=== PATIENT | female | born 2000 | race Caucasian/White ===

== ENCOUNTER 2020-05-18 11:36 | Emergency (ER) | payer OTHER ==
[~2020-05-18] VITALS: Ht 162.6 cm; Wt 59.1 kg
--- OUTSIDE RECORDS SUMMARY | 2020-05-18 11:40 | CCD | Continuity of Care Document ---
Author Author Valentina [facility] Organization Unknown Address [address] [place] [id number] Phone [phone] Care Team Providers Care Customer Servicer Name Role Phone [facility] AUTM [phone] Israel [facility] AUTM [phone] RODRIGUE [facility] AUTM [phone] Israel [facility] PCP [phone] Social History Type Date Description Comments Sex Unknown Allergies, Adverse Reactions, Alerts Description No Known Drug Allergies Medications Active Medications SIG Qnty Indications Ordering Provide r Date Metoprolol Succinate ER 25mg Tablets ER 24HR Take One Tablet By Mouth Daily AT Bedtime 90tabs [facility] 05/06/[address] Take One Tablet By Mouth Daily 30tabs [facility] 021 History Medications No Active Medications Unknown - 05/06/2020 Vital Signs Date Vital Result Comment 05/06/2020 11:23am Height 64 inches 5'4" Weight 137.25 lb BMI (Body Mass Index) 23.6 kg/m2 Body Temperature 97.2 F BP Systolic 124 mmHg BP Diastolic 78 mmHg Heart Rate 82 /min O2 % BldC Oximetry 99 % 04/26/2020 2:29pm Height 64 inches 5'4" Weight 133.50 lb BMI (Body Mass Index) 22.9 kg/m2 Body Temperature 97.5 F BP Systolic 123 mmHg BP Diastolic 82 mmHg Heart Rate 88 /min O2 % BldC Oximetry 99 % Procedures Date Code Description Status 04/28/2020 45263 24 Hour Holter Monitoring Comple bijan 04/26/2020 21006 Echocardiogram, Complete Complet ed 04/26/2020 30082 Multistage Exercise Stress Test Completed 04/26/2020 20253 EKG Completed Encounters Type Date Location Provider Dx Diagnosis Office Visit 05/06/2020 11:30a [facility] Rodrigue Schreer [facility] I49.49 Other premature depolarization Office Visit 04/26/2020 2:15p [facility] Rodrigue [facility] R07.9 Chest pain, unspecified R53.83 Other fatigue I34.0 Nonrheumatic mitral (valve) insufficiency I25.9 Chronic ischemic heart disea se, unspecified I49.49 Other premature depolarizati on Assessments Date Code Description Provider 05/06/2020 I49.49 Other premature depolarization Hema [facility]r [facility] 04/28/2020 R00.2 Palpitations Damian Lowery[facility] 04/26/2020 R07.9 Chest pain, kishaified Rodrigue As hrafNick[facility] 04/26/2020 R53.83 Other fatigue Damian Lowery[facility] 04/26/2020 I34.0 Nonrheumatic mitral (valve) insu fficiency [facility] 04/26/2020 I25.9 Chronic ischemic heart disease, unspecified [facility] 04/26/2020 I49.49 Other premature depolarization Hema [facility]r [facility] Plan of Treatment Future Appointment(s):* 06/06/2020 2:30 pm - Rodrigue [facility] at [facility] Referrals Refer to Reason for Referral Status Appt Date Rodrigue Scherer M.D. Created [address] [place] [address] [phone]
--- OUTSIDE RECORDS SUMMARY | 2020-05-18 11:41 | CCD ---
Author Author [facility] Organization [facility] Address Unknown Phone Unavailable Care Team Providers Care Locks Tender Name Role Phone PHILLIP SCHERER MD Unavailable Unavailable IGNACIASELINQBOVU ANDERSON MD Unavailable Unavailable IGNACIA MAQBOOL JUSTIN DE LA ROSA Unavailable Unavailable IGNACIA MAQBOVU ANDERSON MD Unavailable Unavailable IGNACIASELINQBOVU ANDERSON MD Unavailable Unavailable IGNACIASELINQBOVU ANDERSON MD Unavailable Unavailable IGNACIA MAQBOVU ANDERSON MD Unavailable Unavailable IGNACIA MAQBOVU ANDERSON MD Unavailable Unavailable IGNACIASELINQBOVU ANDERSON MD Unavailable Unavailable IGNACIAZAKIYABOVU ANDERSON MD Unavailable Unavailable IGNACIASELINQBOVU ANDERSON MD Unavailable Unavailable IGNACIASELINQBOVU ANDERSON MD Unavailable Unavailable IGNACIASELINQBOVU ANDERSON MD Unavailable Unavailable IGNACIASELINQBOVU ANDERSON MD Unavailable Unavailable IGNACIASELINQBOVU ANDERSON MD Unavailable Unavailable IGNACIA MAQBOVU ANDERSON MD Unavailable Unavailable IGNACIA MAQBOOL JUSTIN DE LA ROSA Unavailable Unavailable IGNACIA MAQBOUV ANDERSON MD Unavailable Unavailable IGNACIASELINQBOVU ANDERSON MD Unavailable Unavailable IGNACIASELINQBOVU ANDERSON MD Unavailable Unavailable IGNACIA MAQBOOL JUSTIN DE LA ROSA Unavailable Unavailable IGNACIA MAQBOVU ANDERSON MD Unavailable Unavailable IGNACIA MAQBOVU ANDERSON MD Unavailable Unavailable IGNACIA MAQBOVU ANDERSON MD Unavailable Unavailable IGNACIA MAQBOOL JUSTIN MD Unavailable Unavailable IGNACIA, MAQBOOL JUSTIN MD Unavailable Unavailable IGNACIA, MAQBOOL JUSTIN MD Unavailable Unavailable IGNACIA, MAQBOOL JUSTIN MD Unavailable Unavailable IGNACIA, MAQBOOL JUSTIN MD Unavailable Unavailable IGNACIA, MAQBOOL JUSTIN MD Unavailable Unavailable IGNACIA, MAQBOOL JUSTIN MD Unavailable Unavailable IGNACIA, MAQBOOL JUSTIN MD Unavailable Unavailable IGNACIA, MAQBOOL JUSTIN MD Unavailable Unavailable IGNACIA, MAQBOOL JUSTIN MD Unavailable Unavailable IGNACIA, MAQBOOL JUSTIN MD Unavailable Unavailable INGACIA, MAQBOOL JUSTIN MD Unavailable Unavailable IGNACIA, MAQBOOL JUSTIN MD Unavailable Unavailable IGNACIA, MAQBOOL JUSTIN MD Unavailable Unavailable IGNACIA, MAQBOOL JUSTIN MD Unavailable Unavailable IGNACIA, MAQBOOL JUSTIN MD Unavailable Unavailable IGNACIA, MAQBOOL JUSTIN MD Unavailable Unavailable IGNACIA, MAQBOOL JUSTIN MD Unavailable Unavailable IGNACIA, MAQBOOL JUSTIN MD Unavailable Unavailable IGNACIA, MAQBOOL JUSTIN MD Unavailable Unavailable IGNACIA, MAQBOOL JUSTIN MD Unavailable Unavailable IGNACIA, MAQBOOL JUSTIN MD Unavailable Unavailable IGNACIA, MAQBOOL JUSTIN MD Unavailable Unavailable IGNACIA, MAQBOOL JUSTIN MD Unavailable Unavailable IGNACIA, MAQBOOL JUSTIN MD Unavailable Unavailable IGNACIA, MAQBOOL JUSTIN MD Unavailable Unavailable IGNACIA, MAQBOOL JUSTIN MD Unavailable Unavailable IGNACIA, MAQBOOL JUSTIN MD Unavailable Unavailable IGNACIA, MAQBOOL JUSTIN MD Unavailable Unavailable IGNACIA, MAQBOOL JUSTIN MD Unavailable Unavailable IGNACIA, MAQBOOL JUSTIN MD Unavailable Unavailable IGNACIA, MAQBOOL JUSTIN MD Unavailable Unavailable IGNACIA, MAQBOOL JUSTIN MD Unavailable Unavailable IGNACIA, MAQBOOL JUSTIN MD Unavailable Unavailable IGNACIA, MAQBOOL JUSTIN MD Unavailable Unavailable IGNACIA, MAQBOOL JUSTIN MD Unavailable Unavailable IGNACIA, MAQBOOL JUSTIN MD Unavailable Unavailable IGNACIA, MAQBOOL JUSTIN MD Unavailable Unavailable IGNACIA, MAQBOOL JUSTIN MD Unavailable Unavailable IGNACIA, MAQBOOL JUSTIN MD Unavailable Unavailable IGNACIA, MAQBOOL JUSTIN MD Unavailable Unavailable IGNACIA, MAQBOOL JUSTIN MD Unavailable Unavailable IGNACIA, MAQBOOL JUSTIN MD Unavailable Unavailable IGNACIA, MAQBOOL JUSTIN MD Unavailable Unavailable IGNACIA, MAQBOOL JUSTIN MD Unavailable Unavailable IGNACIA, MAQBOOL JUSTIN MD Unavailable Unavailable IGNACIA, MAQBOOL JUSTIN MD Unavailable Unavailable IGNACIA, MAQBOOL JUSTIN MD Unavailable Unavailable IGNACIA, MAQBOOL JUSTIN MD Unavailable Unavailable IGNACIA, MAQBOOL JUSTIN MD Unavailable Unavailable Jen, J Gordon PA-C Unavailable Unavailable Jen, J Gordon PA-C Unavailable Unavailable Jen, J Gordon PA-C Unavailable Unavailable Jen, J Gordon PA-C Unavailable Unavailable Jen, J Gordon PA-C Unavailable Unavailable Jen, J Gordon PA-C Unavailable Unavailable Jen, J Gordon PA-C Unavailable Unavailable Jen, J Gordon PA-C Unavailable Unavailable Jen, J Gordon PA-C Unavailable Unavailable Jen, Karla Gordon PA-C Unavailable Unavailable Jen, J Gordon PA-C Unavailable Unavailable Re-disclosure Warning The records that you are about to access may contain information from federally-assisted alcohol or drug abuse programs. If such information is present, then the following federally mandated warning applies: This information has been disclosed to you from records protected by federal confidentiality rules (42 CFR part 2). The federal rules prohibit you from making any further disclosure of this information unless further disclosure is expressly permitted by the written consent of the person to whom it pertains or as otherwise permitted by 42 CFR part 2. A general authorization for the release of medical or other information is NOT sufficient for this purpose. The Federal rules restrict any use of the information to criminally investigate or prosecute any alcohol or drug abuse patient.The records that you are about to access may contain highly sensitive health information, the redisclosure of which is protected by Article 27-F of the [facility] Public Health law. If you continue you may have access to information: Regarding HIV / AIDS; Provided by facilities licensed or operated by the [facility] Office of Mental Health; or Provided by the [facility] Office for People With Developmental Disabilities. If such information is present, then the following [facility] mandated warning applies: This information has been disclosed to you from confidential records which are protected by state law. State law prohibits you from making any further disclosure of this information without the specific written consent of the person to whom it pertains, or as otherwise permitted by law. Any unauthorized further disclosure in violation of state law may result in a fine or mcfp sentence or both. A general authorization for the release of medical or other information is NOT sufficient authorization for further disc losure. Encounters Encounter Providers Location Date Indications Data Source(s ) Office Visit Attender: JUSTIN SCHERER MD Medical Building 05/06 10:30:00 AM EST [facility] (Justin Scherer MD) Office Visit Attender: JUSTIN SCHERER MD Medical [facility] 04/26 01:15:00 PM EST [facility] (Justin Scherer MD) Emergency Attender: Gordon Li PA-C 10:33:00 AM EST - 03/15/2020 01:04:00 PM [facility] Patient discharged. Medications Medication Brand Name Start Date Product Form Dose Route Admi nistrative Instructions Pharmacy Instructions Status Indications Reaction Description Data Source(s) Magnesium Chloride 535 MG Delayed Release Oral Tablet [Mag 6 4] Mag64 05/06/2020 12:00:00 AM EST active [facility] (Justin Scherer MD) 24 HR metoprolol succinate 25 MG Extended Release Oral Tablet Metoprolol Succinate ER 05/06/2020 12:00:00 AM EST active [facility] (Justin Scherer MD) No Active Medications 04/26/2020 12:00:00 AM EST completed [facility] (Justin Scherer MD) Insurance Providers Payer name Policy type / Coverage type Policy ID Covered democrat ID Covered democrat's relationship to robles Policy Robles Plan Information [employer] [id number] SP [id number] [employer] [id number] SP [id number] [employer] [facility] [employer] - O/P [id number] 18 [id number] Problems, Conditions, and Diagnoses Code Display Name Description Problem Type Effective Dates Data Source(s) R55 Syncope and collapse Syncope and collapse Diagnosis 03/15/2020 10:33:00 AM [facility] I493 Ventricular premature depolarization Ventricular premature depolarization Diagnosis 03/15/2020 10:33:00 AM [facility] R0789 Other chest pain Other chest pain Diagnosis 03/15/2020 10 :33:00 AM [facility] Surgeries/Procedures Procedure Description Date Indications Data Source(s) XTRNL ECG < 48 HR RECORD SCAN STOR W/PHY R&I 12:00:00 AM EST [facility] (Justin Scherer MD) ECG ROUTINE ECG W/LEAST 12 LDS W/I&R 04/26/2020 12:00: 00 AM EST [facility] (Justin Scherer MD) CV STRS TST XERS&/OR RX CONT ECG PHYS SI&R 04/26/2020 12:00:00 AM EST [facility] (Justin Scherer MD) ECHO TTHRC R-T 2D W/WOM-MODE COMPL SPEC&COLR DOP 04/26 12:00:00 AM EST [facility] (Justin Scherer MD) Results ID Date Data Source [id number] 03/16/2020 11:55:00 PM [facility] [address] [place] [address] RESPIRATORY CARE REPORT ==== ---------NAME------- NUMBER SEX AGE ADMIT DISC. XRAY# [facility] DAMEON D [id number] F 19 03/15/20 03/15/202099807923 SB4 E/R DATE OF : 2000 M/R# [id number] #: [id number] VT-01 LOCATION: EMERGENCY DEPT EKG 89211 COMPLE TE:03/15/20 14:18 [facility] [address] PHYSICIAN: JEN LAZARO Name Value Range Interpretation Code Description Data Bree rce(s) Supporting Document(s) ID Date Data Source [id number] 03/16/2020 11:32:00 AM EST [facility] [address] [place] [address] PHONE: [phone] FAX: [phone] Name .................. : GERARDO Lazo Acct Number.................. : [id number] [facility]... : [id number] Stay type ............. : E/R Discharge Date......... ... : 03/15/20 Admit Date .... ..... : 03/15/20 Admit Phys .................... : JEN IVETH Date of ....... : 2000 Family Phys ................... : UNKNOWN Phone .................. : [phone] Age ................................ : 19 Film# .................. .:[id number] Sex ................................. : F Unsigned transcriptions are preliminary reports and do not represent a medical or legal document CT CTA CHEST NON-CORONARY W C 16977 COMPLETE:03/15/20 11:14 218 Reason(s): light headed dizziness, chest pain, elevated d dimer, ? PE CTA CHEST WITH CONTRAST, 03/15/20: CLINICAL INDICATION: Chest pain and dizziness. Elevated D-dimer. Comparison: None. FINDINGS: Pulmonary arteries: Well opacified, no acute pulmonary embolism. Normal caliber. No right heart string. Lower neck: Unremarkable. Lungs: Clear. No suspicious nodule. No pleural effusion or pneumothorax. Patent central airways. Mediastinum: Normal heart size. Normal caliber thoracic aorta. No significant atherosclerotic disease. Lymph nodes: No hilar, mediastinal, or axillary adenopathy. Upper abdomen: No acute findings. Bones: No acute or suspicious osseous abnormality. IMPRESSION: No pulmonary embolism or other acute abnormality in the chest. While performing the above CT examination, radiation dose reduction was accomplished utilizing automated exposure control, adjusting of the mA and kV based on the patient's body size and/or the use of imperative reconstructive techniques. Page 1 of 2 [place] [address] PHONE: [phone] FAX: [phone] Name .................. : GERARDO Lazo Acct Number.................. : [id number] ROOM. ................. : VT-01 MR Number ................... : [id number] Stay type ............. : E/R Discharge Date......... ... : 03/15/20 Admit Date ......... : 03/15/20 Admit Phys .................... : [facility] Date of ....... : 2000 Family Phys ................... : UNKNOWN Phone .................. : [phone] Age ................................ : 19 Film# .................. .:[id number] Sex ................................. : F Unsigned transcriptions are preliminary reports and do not represent a medical or legal document CT CTA CHEST NON- CORONARY W C 03920 COMPLETE:03/15/20 11:14 218 Reason(s): light headed dizziness, chest pain, elevated d dimer, ? PE CT dose 327.2 mGycm. Contrast agent in mL: 75 mL Isovue 370 Method of administration: Intravenous Electronically Reviewed and Signed By Alberto Richardson MD , 03/16/20 11:32, APM Transcribe Initials: SSR, Transcribe Date: 03/15/20 14:36, Dictation Date: Copy for: JEN Acosta via fax Copy for: EMERGENCY DEPT via modem Copy for: 710 MED REC DISCHARGED Page 2 of 2 Name Value Range Interpretation Code Description Data Bree rce(s) Supporting Document(s) ID Date Data Source [id number] 03/16/2020 11:31:00 [place] [address] PHONE: [phone] FAX: [phone] Name .................. : GERARDO Lazo Acct Number.................. : [id number] ROOM. ................. : VT-01 MR Number ................... : [id number] Stay type ............. : E/R Discharge Date......... ... : 03/15/20 Admit Date ....... .. : 03/15/20 Admit Phys .................... : JEN IVETH Date of ....... : 2000 Family Phys ................... : UNKNOWN Phone .................. : [phone] Age ................................ : 19 Film# .................. .:[id number] Sex ................................. : F Unsigned transcriptions are preliminary reports and do not represent a medical or legal document DOPPLER UNILATERAL VENOUS 25963 COMPLETE:03/15/20 12:39 MCM 219 Reason(s): Cold Extremity VENOUS SONOGRAM OF THE LEFT LOWER EXTREMITY, 03/15/20: INDICATION: Cold extremity. FINDINGS: There is normal compressibility of the deep venous system from the external iliac through the popliteal vein with normal augmentation identified. IMPRESSION: No evidence for any underlying DVT. Examination dictated by TITA Garrison. Examination was reviewed with Alberto Richardson MD, radiologist at the time of this dictation. Electronically Reviewed and Signed By Alberto Richardson MD , 03/16/20 11:31, APM Transcribe Initials: SSR, Transcribe Date: 03/15/20 14:02, Dictation Date: Copy for: JEN Acosta via fax Copy for: EMERGENCY DEPT via [facility] Copy for: 710 MED REC DISCHARGED Page 1 of 1 Name Value Range Interpretation Code Description Data Bree rce(s) Supporting Document(s) ID Date Data Source [id number] 03/15/2020 10:33:00 AM EST [facility] 1 OrderSheet [facility] Emergency Department [address] [place] [address] Phone #: ext- [phone] 03/15/2020 10:22 [id number] Sex[facility] F : 2000 Age: 19yWEIGHT:58.9 kg (S) HEIGHT:64 inches (S) BMI:22.3ALLERGIES: No Known Drug AllergyCHIEF COMPLAINT: chest painDIAGNOSIS: Electrocardiogram abnormal, Near syncopeLAB ORDERSOrder Description Priority Entered Acknowledged InitialedBeta-HCG, Qual STAT 10:37 03/15/2020 10:43 Paloma,Urine Gordon RIVERS; Loulou R.EvelynCBC w Diff STAT 10:37 03/15/2020 10:43 Gordon Dow; Loulou HarveyCMP STAT 10:37 03/15/2020 10:43 Gordon Bertrand; Loulou HarveyD-Dimer STAT 10:37 03/15/2020 10:43 Gordon Dow; Loulou HarveyLactic Acid STAT 10:37 03/15/2020 10:43 Gordon Dow; Loulou Beard.EvelynPT/PTT STAT 10:37 03/15/2020 10:43 Gordon Dow; Loulou HarveyTroponin-T STAT 10:37 03/15/2020 10:43 Gordon Dow; Loulou Beard.EvelynTSH STAT 10:37 03/15/2020 10:43 Gordon Dow; Loulou R.EvelynUrinalysis (Clean STAT 10:37 03/15/2020 Ack'd: 10:43 10:55 [facility]) Gordon RIVERS; Loulou Dow drill press tender, Good CRISTOBAL R.NJuice Idub2Tezbmtn, Urine STAT 12:55 03/15/2020 12:55 Paloma,(Urine, Clean Gordon RIVERS; Loulou R.NJuiceCatch)DIAGNOSTIC STUDY ORDERSOrder Description Priority Entered Acknowledged InitialedChest Portable 1 STAT 10:37 03/15/2020 Ack'd: 10:43 Loulou Dow R.N.View Gordon RIVERS; Cancelled: Other 11:14 Gordon Li(Oxygen?(No)) TITA Reason for Study: Chest PainCT CTA CHEST STAT 11:14 03/15/2020 Ack'd: 11:17 11:44 [place], 2 OrderSheet [facility] Emergency Department [address] [place] [address] Phone #: ext- [phone] 03/15/2020 10:22 Patient: DAMEON CARRILLO Se x: F : 2000 Age: 19y(NONCOR) W CON Gordon RIVERS; Loulou Dow R.N.INC PP R.NJuice(Oxygen?(No))(IV?(Yes)) Reason for Study: light headed dizziness, chest pain, elevated d dimer, ? PEUS Lower Ext STAT 11:14 03/15/2020 Ack'd: 11:17 12:21 BurnhamVenous Left Gordon RIVERS; Loulou Dow drill press tender, Good ER(Oxygen?(No)) R.N. Tech1 Reason for Study: Cold Extremity, Lower Ext Pain/ImmobilityMEDICATION/IV/DRIP/FLUID ORDERSOrder Description Priority Entered Acknowledged InitialedNS IV : Bolus 500 11:14 03/15/2020 Ack'd: 11:17 12:06 Paloma,mL, then 100 mL/hr Gordon RIVERS; Loulou Dow R.N.(NOW x1) R.N.GENERAL ORDERSOrder Description Priority Entered Acknowledged InitialedCardiac Monitor 10:37 03/15/2020 10:40 Margo(continuous) Gordon RIVERS; drill press tender, Good ER Pdev9Azsgf Pressure 10:37 03/15/2020 10:40 MargoMonitor Gordon RIVERS; drill press tender, Good ER Sobl5Atwqicjtg 10:37 03/15/2020 10:59 Gordon Dow R.N.EKG 10:37 03/15/2020 10:40 Margo RIVERS; drill press tender, Good ER Rqtq4Jdokk Oximetry 10:37 03/15/2020 10:43 Ondina Dow; Loulou HarveyObtain Old EKG 10:37 03/15/2020 10:43 Gordon Dow; Loulou HarveySaline Lock 10:37 03/15/2020 10:43 Gordon Dow; Loulou HarveyVitals 10:37 03/15/2020 10:43 Gordon Dow; Loulou HarveyWarm blanke t 10:37 03/15/2020 10:43 Gordon Dow; Loulou Harvey[Electronically signed by Loulou Dow R.N. (13:14 03/15/2020)] 3 OrderSheet [facility] Emergency Department [address] [place] [address] Phone #: ext- [phone] 03/15/2020 10:22 Patient: DAMEON CARRILLO Sex: F : 2000 Age: 19y[Electronically signed by Gordon Li (15:49 03/15)][Electronically locked by Loulou Dow R.N. (13:14 03/15/2020)] Name Value Range Interpretation Code Description Data Bree rce(s) Supporting Document(s) ID Date Data Source [id number] 03/15/2020 10:33:00 AM EST [facility] 1 Medication Reconciliation Report [facility] Emergency Department [address] [place] [address] Phone #: ext- [phone] 03/15/2020 10:22 Patient: DAMEON CARRILLO Sex: F : 2000 Age: 19yWeight: 58.9 kgHeight/Length: 64 in.BMI: 22.3ALLERGIES: No Known Drug AllergyThe patient's Home Medications are listed below:NONE.The source(s) of the original Home Medication information:Not obtained.The following Medications were given to the patient in the Emergency Department:NS [IV] IV Fluids bolus 500 mL wide open, then 100 mL/hr, administered: 12:06 03/15/2020The following Medications were prescribed to the patient:None. Name Value Range Interpretation Code Description Data Bree rce(s) Supporting Document(s) ID Date Data Source [id number] 03/15/2020 10:33:00 AM [place] [address] Medication Administration Record [facility] Emergency Department [address] [place] [address] Phone #: [phone]- [phone] 03/15/2020 10:22 Patient: DAMEON CARRILLO Sex: F : 2000 Age: 19yWeight: 58.9 kgHeight/Length: 64 inBMI: 22.3ALLERGIES: No Known Drug Allergy Date/Time Medication Administered Medication OrderedStart NS [IV] NS IV : Bolus 500 mL, then 00555:06 03/15/2020 Dose: IV Fluids mL/hr (NOW x1)Loulou Dow, RJuiceNJuice Rate: 100 mL/hr---- Bolus: 500 mL wide openStop Dispensed: 1000 mL bag12:58 03/15/2020 Site: #1 left Loulou Bridges RJuiceNJuice Name Value Range Interpretation Code Description Data Bree rce(s) Supporting Document(s) ID Date Data Source [id number] 03/15/2020 10:33:00 AM [facility] 1 General Instructions [facility] Emergency Department [address] [place] [address] Phone #: ext- [phone] 03/15/2020 10:22 Patient: DAMEON CARRILLO Sex: F : 2000 Age: 19yNear syncopeAbnormal EKG: premature ventricular contractions.INSTRUCTIONSNo strenuous activity (until evaluated by cardiology). Rest at home for one days.Avoid stimulants (such as cigarettes, coffee, cold medicines, sinus medicines, street drugs) (untilevaluation by data engineer). Do not smoke. No alcohol.Warnings: Further evaluation is necessary in order to conduct further tests. It is very important to follow upwith a healthcare provider.GENERAL WARNINGS: Return or contact your physician immediately if your condition worsens orchanges unexpectedly, if not improving as expected, or if other problems arise. SPECIFICALLY, return ifyou develop chest pain, neck pain, jaw pain, shoulder pain, arm pain, back pain, difficulty breathing, afluttering sensation in your chest, lightheadedness, fainting, extreme fatigue or sudden sweating.Your Current Medications: .No home medication.Understanding of the discharge instructions verbalized by patient. Expected course of illness, dischargeinstructions, activity level, follow-up appointment and risks and benefits of treatment reviewed with patientand understanding verbalized. Agrees to plan of care.Follow-up with: [facility], , , [address], , [place], [address] Follow up in one day even if well. Call for the next available appointment. Reason for referral: evaluationand recommend cardiology referral for further evaluation of PVC's on EKG and symptoms oflightheadedness. Summary of care provided to patient via paper. ADDITIONAL INFORMATIONNear-Fainting with Uncertain CauseFainting (syncope) is a temporary l oss of consciousness (passing out). It happens when blood flow tothe brain is reduced. Near-fainting (near-syncope) is like fainting, but you don't fully pass out. Instead,you feel like you are going to pass out, but don't actually lose consciousness. 2 General Instructions [facility] Emergency Department [address] [place] [id number] Phone #: ext- [phone] 03/15/2020 10:22 Patient: DAMEON CARRILLO Sex: F : 2000 Age: 19ySigns and symptomsThese are symptoms of near-fainting or symptoms that can be associated with near-fainting: Feeling lightheaded or like you are going to faint Weak pulse Nausea Sweating Blurred vision or feeling like your vision is fading Palpitations Chest pain Trouble breathing Feeling cool and clammyCausesFainting typically happens when your blood pressure suddenly drops, and not enough blood flows toyour brain.Common minor causes include: Sudden emotional stress such as fear, pain, panic, or the sight of blood Straining or overexertion, such as straining while using the toilet, vomiting, coughing, or sneezing Standing up too quickly, or standing up for too long a timeMore serious causes include: Very slow, fast, or irregular heart rate (arrhythmia) Dehydration Significant blood loss Medicines, or a recent change in medicines. Medicines that can cause fainting include blood pressure or heart medicines. Heart attack Heart valve problems 3 General Instructions [facility] Emergency Department [address] [place] [address] Phone #: ext- [phone] 03/15/2020 10:22 Patient: DAMEON CARRILLO Sex: F : 2000 Age: 19yRemember, even minor causes can become serious if you fall and injure yourself, or are driving. Youmay need more tests. It's very important that you follow up with your doctor as advised.Home careThese guidelines will help you care for yourself at home: Rest today. Resume your normal activities as soon as you are feeling back to normal. If you become lightheaded or dizzy, lie down right away or sit with your head between your knees. Drink plenty of fluids and don't skip meals.Because the exact cause of your near fainting spell is not known, another spell could occur withoutwarning. To stay safe, don't drive a car or use dangerous equipment. Don't take a bath alone. Don'tswim alone. You can resume these activities when your healthcare provider says that you are nolonger in danger of having a near-fainting spell.Follow-up careFollow up with your healthcare provider, or as advised.Call 911Call 911 or seek [facility] care if any of the following occur: Another near-fainting or full fainting spell occurs, and it's not explained by the common causes listed above Chest, arm, neck, jaw, back or abdominal pain Shortness of breath Weakness, tingling, or numbness in one side of the face, or in one arm or leg Slurred speech, confusion, trouble walking or seeing SeizureWhen to seek medical adviceCall your healthcare provider for advice if any of these occur: Changes in your medicines You start to have near fainting on a more frequent basis 4 General Instructions [facility] Emergency Department [address] [place] [address] Phone #: ext- [phone] 03/15/2020 10:22 Patient: DAMEON CARRILLO Sex: F : 2000 Age: 19y [id number] [employer]. [address] [place] [address]. All rights reserved. This information is not intended as asubstitute for professional medical care. Always follow your healthcare professional's instructions. You have been given the following additional information: Near-Fainting, Uncertain Cause No strenuous activity (until evaluated by cardiology). Rest at home for one days.(Electronically signed by TITA Pfeiffer 03/15/2020 15:49) Name Value Range Interpretation Code Description Data Bree rce(s) Supporting Document(s) ID Date Data Source [id number] 03/15/2020 10:33:00 AM EST [facility] 1 Clinical Report - Nurses [facility] Emergency Department [address] [place] [address] Phone #: ext- [phone] 03/15/2020 10:22 Patient: DAMEON CARRILLO Sex: F : 2000 Age: 19yTRIAGEArrived by private vehicle. Historian: patient.Triage time: 10:24 03/15/2020. Acuity: LEVEL 3.Chief Complaint: CHEST PAIN.10:24 03/15/20. Alert. No acute distress.This started last night. Onset. (2300). ( "Was lying in bed, feeling anxious began having chest pain"Mid-sternal, intermittent, dizzy when standing, walking). The patient has had transient dizziness whenstanding described as light-headedness.SEPSIS SCREEN: SIRS SCREEN NEGATIVE. SEPSIS SCREEN NEGATIVE. No suspected or confirmedsigns of infection present. --10:30 03/15/20 Adore Espinal RN10:24 03/15/20. BP: 137/94. MAP: 108. HR: 78. RR: 15. O2 saturation: 98%. Temp: 96.8 F. Pain levelnow: 2/10. Rodri cribes the quality as sharp. It has been intermittent. Pain level at maximum: 6/10. Noradiation noted. No provoking / relieving factors. --10:30 03/15/20 Adore Espinal RN.Weight: 58.9 kg stated. Height/Length: 64 inches Per Patient. BMI: 22.3. --10:03/15/20 LEONID Deshpande.MedicationsNone. --10:28 03/15/20 Adore Espinal RN.AllergiesNo Known Drug Allergy. --10:28 03/15/20 Adore Espinal RN.PROBLEMS:no known problems.ADDITIONAL SURGERIES:Appendectomy [05/2019]. --10:28 03/15/20 Adore Espinal RN.Ttjjldt11:24 03/15/20.PAST MEDICAL HX: Immunizations: up-to-date. Last normal menstrual period was 1 week ago. Deniescurrent .SOCIAL HX: Never smoker. Occasional alcohol use. No drug use. The patient was offered HIV testingbut declined and hepatitis C testing but declined. The patient has not traveled outside the [place] 2 Clinical Report - Nurses [facility] Emergency Department [address] [place] [address] Phone #: [phone] czd- [phone] 03/15/2020 10:22 Patient: DAMEON CARRILLO Sex: F : 2000 Age: 19y Infectious disease exposure: No infectious disease exposure. (Negative COVID-19 screen). Patient is not a known carrier of tuberculosis, hepatitis, HIV, MRSA or VRE. Patient is not a known carrier of CRE. SELF HARM ASSESSMENT: Self harm assessment was performed. The patient answered "no" to the question(s) "Do you have thoughts of harming or killing yourself?" and "Have you recently had thoughts about harming or killing others?". ABUSE ASSESSMENT: Abuse assessment. The patient had positive responses to the question(s) "Do you feel safe in your home?" (yes). Abuse denied. No report of abuse. NUTRITIONAL RISK ASSESSMENT: The nutritional risk assessment revealed no deficiencies. FUNCTIONAL ASSESSMENT: Functional assessment: no impairments noted. LEARNING NEEDS ASSESSMENT: The learning needs assessment revealed no barriers. FALL RISK ASSESSMENT: Fall risk assessment completed. No risk factors identified. SKIN INTEGRITY ASSESSMENT: Skin integrity risk assessment completed. No skin integrit y risk identified. --10:30 03/15/20 Adore Espinal RN. Interventions 10:24 03/15/20. To treatment room. Ambulatory by hospital staff. to room 2. --10:03/15/20 Adore Espinal RN.PHYSICAL ASSESSMENTAmbulatory to room.GENERAL / NEURO / PSYCH: Alert. Oriented X 4. Appears in no acute distress.HEENT: Mucous membranes are pink.RESPIRATORY: Respirations not labored. Sternal tenderness.CVS: Cardiac rhythm: unifocal PVCs (frequent every 2-4 beats). Pulses within normal limits. Capillaryrefill less than 2 seconds.GI / : The patient has had nausea. Abdomen soft. Abdominal tenderness in the upper abdom en.EXTREMITIES: No lower extremity edema.SKIN: Skin is warm and dry. Normal skin turgor. Skin is non-tender. --10:43 03/15/20 Loulou Dow R.N.NURSING PROGRESS NOTES10:24 03/15/20. police detention attendant, NIBP monitor and pulse oximeter placed on patient; pharmacist apprentice-Lead II; monitor alarms on; monitor strip scanned to medical record. Patient gowned. Head of bedelevated. Two patient identifiers checked. Call light placed in reach. Side rails up x 2. Bed placed inlowest position. Brakes of bed on. Patient ready for evaluation- PA notified. --10:03/15/20 LEONID Deshpande 3 Clinical Report - Nurses [facility] Emergency Department [address] [place] [address] Phone #: ext- [phone] 03/15/2020 10:22 Patient: DAMEON CARRILLO Sex: F : 2000 Age: 19y10:25 03/15/20. EKG time: (10:25 03/15/2020). EKG was ordered, performed by a tech and shown ghislaine RIVERS. --10:31 03/15/20 Adore Espinal RN10:34 03/15/2020 Site #1 started via IV in the left antecubital space with an 20g angiocath; one attempt.Blood drawn: rainbow set and blood bank tube. Labeled in the presence of the patient and sent to the lab.Saline lock flushed with 10 mL saline. --10:44 03/15/20 Loulou Dow R.N.Finger stick glucose: 92; performed by nurse; result shown to the ED physician. --10:59 03/15/20 Loulou Dow R.N.Patient ID band checked for patient name and birthdate: patient confirmed. Instructions provided to collectclean catch urine and patient verbalized understanding. Clean catch u rine collected; sample sent to lab forurinalysis. Specimen labeled in the presence of the patient. --10:59 03/15/20 Loulou Dow R.N.Patient transported to [place] by wheelchair with mask and dictaphone technician. --11:44 03/15/20 Apple Jackson R.N.Patient returned from [place] by wheelchair with dictaphone technician. --11:55 03/15/20 [facility] [place], [facility] Jdvp388:06 03/15/2020 Started bag #1 1000 mL IV Fluids NS; bolus of 500 mL wide open then at 100 mL/hr viasite #1 via IV pump. Allergies verified and confirmed 5 rights. IV patency established. IV site checked: nopain, redness, or swelling. IV flushed thoroughly pre- and post- medication administration. Informationreviewed with patient including reason for taking this medication, signs of allergic reaction and precautions.Verbalizes understanding. --12:06 03/15/20 Loulou Dow R.N.( Ultrasound in room). --12:22 03/15/20 Loulou Dow R.N.11:00 03/15/20. BP: 137/84. MAP: 101. HR: 74. RR: 19. O2 saturation: 100%. --12:30 03/15/20[facility] [place], Te ch111:30 03/15/20. BP: 121/76. MAP: 91. HR: 72. RR: 22. O2 saturation: 100%. --12:30 03/15/20 [facility] Ibbr352:00 03/15/20. BP: 122/86. MAP: 98. HR: 74. RR: 17. O2 saturation: 100%. --12:31 03/15/20 [facility] Vhsj791:31 03/15/20. BP: 129/75. MAP: 93. HR: 78. RR: 16. O2 saturation: 100%. --12:31 03/15/20 [facility] Cmxs564:58 03/15/2020 Site #1 removed upon discharge. Catheter intact. Bandage applied. --12:03/15/20Loulou Dow R.N.12:03/15/2020 IV Fluids NS via IV site #1 Discontinued: bag #1 STOPPED upon discharge. Total 4 Clinical Report - Nurses [facility] Emergency Department [address] [place] [address] Phone #: ext- [phone] 03/15/2020 10:22 [id number] Sex[facility] : 2000 Age: 19y amount infused: 560ml mL. IV patency established. IV site checked: no pain, redness, or swelling. IV flushed thoroughly. --12:58 03/15/20 Loulou Dow R.N.DISPOSITION / DISCHARGE 13:04 03/15/20. Departure time: late entry - 13:03/15/2020. Condition at departure: improved. No learning barriers present. Discharge instructions provided and reviewed with the patient. Reviewed referral to a data engineer and primary care physician for followup. Activity restrictions (rest) reviewed. Work note given. Patient verbalized understanding. Written instructions provided in Maldivian. The patient was discharged by the physician medical clerical assistant. She was discharged home and accompanied by coworker. She l eft ambulatory and via private vehicle. Driving (coworker). --13:14 03/15/20 Loulou Dow R.N. 13:00 03/15/20. BP: 125/83. MAP: 97. HR: 72. RR: 16. O2 saturation: 99% on room air. Temp: 97.2 F (oral). Pain level now: 06/08. --13:14 03/15/20 Loulou Dow R.N.Locked/Released at 03/15/2020 13:14 by Loulou Dow R.N. Name Value Range Interpretation Code Description Data Bree rce(s) Supporting Document(s) ID Date Data Source [id number] 03/15/2020 10:33:00 AM [facility] 1 Clinical Report - Physicians/Mid Levels [facility] Emergency Department [address] [place] [address] Phone #: ext- [phone] 03/15/2020 10:22 Patient: DAMEON CARRILLO Sex: F : 2000 Age: 19y Time Seen: 10:31 03/15/2020. Arrived- By private vehicle. Historian- patient. Disposition decision: 12:55 03/15/2020.HISTORY OF PRESENT ILLNESS Chief Complaint: CHEST PAIN. It is described as tightness and it is described as located in the central chest area and left shoulder and arm. No radiation. This started last night Pt states she was lying in bed last pm and had acute onset central chest discomfort radiating to L arm with sensation of lightheadedness a nd dizziness, which lasted about an hour and then resolved. Pt on her way to work this am and again experienced lightheadedness and dizziness, no chest pain. Feels slightly lightheaded in ED. No chest pain currently. At its maximum, severity described as 6 / 10. When seen in the E.D., severity described as 6 / 10. Modifying factors. Not worsened by anything. Not relieved by anything. No nausea, vomiting, difficulty breathing or diaphoresis. Similar symptoms previously. None. Recent medical care: Not recently seen/assessed.REVIEW OF SYSTEMSLast normal menstrual period- about 1 weeks ago. No fever, chills, cough, pedal edema or calf pain. Nomissed periods, abnormal bleeding, vaginal discharge, fainting episodes or headache. No sore throat,blurred vision, abdominal pain, black stools or difficulty with urination. No skin rash, enlarged lymphnodes, joint pain or bloody stools.PAST HISTORYSee nurses notes. Problems: no known problems. Additional Surgeries: Appendectomy [05/2019]. Medications: None. Allergies: No Known Drug Allergy.SOCIAL HISTORYNever smoker. Occasional alcohol use. No drug use. No recent travel.ADDITIONAL NOTES 2 Clinical Report - Physicians/Mid Levels [facility] Emergency Department [address] [place] [address] Phone #: ext- [phone] 03/15/2020 10:22 Patient: DAMEON CARRILLO Sex: F : 2000 Age: 19y The nursing notes have been reviewed with agreement regarding the chief complaint, HPI, ROS, PMH and patient medications and allergies.PHYSICAL EXAMVital Signs: 03/15/2020 10:24 BP: 137/94. MAP: 108. HR: 78. RR: 15. O2 saturation: 98%. Temp: 96.8 F.Pain level now: 05/11. Have been reviewed as abnormal and appear to be correct. Hypertensive. Meanarterial pressure- normal. Heart rate normal. Respiratory rate normal. Temperature normal. Oxygensaturation normal.Appearance: Alert. Oriented X3. Anxious. Patient in mild distress. Distress appears due to anxiety.Eyes: Pupils equal, round and reactive to light. Eyes normal inspection.ENT: Ears normal. Nose normal. Pharynx normal.Neck: Normal inspection. Neck supple.CVS: Normal heart rate and rhythm. Heart sounds normal. Pulses normal.Respiratory: No respiratory distress. Painless inspiration. Breath sounds normal. Chest nontender.Abdomen: Soft and nontender. Bowel sounds normal. No organomegaly. No mass. Femoral pulsesequal.Back: Normal external inspection.Skin: Skin warm and dry. Normal skin color. No rash. Normal skin turgor.Extremities: Extremities exhibit normal ROM. No lower extremity edema.Neuro: Oriented X 3. No motor deficit. No sensory deficit. Reflexes normal.LABS, X-RAYS, AND EKGEKG: EKG time: 10:38 03/15/2020. No acute process. No acute ischemia. Rate: 76. Occasionalectopic beats. Premature ventricular contractions. Normal P waves. Normal PAULETTE. Normal QRScomplex. Normal axis. Normal ST and T waves, QT and QTc. sinus rhythm with frequent PVC's,otherwise normal ECG. Prior EKG unavailable. The study has been interpreted contemporaneously.The study has been independently viewed by me. The EKG appears to be a good tracing. I agree withand confirm the computer reading of the EKG. Interpretation time: 10:38 03/15/2020.CTA Pulmonary Arteries: NO PE, no acute findings. The CTA was performed with contrast. The studywas independently viewed by me and interpreted by the radiologist and contemporaneously by me.Interpretation time: 12:35 03/15/2020.Lower Extremity Sonography: Negative exam on the left side. Study type: utilized duplex sonography.The exam was performed by a environmental services technician. The study was independently viewed by me and interpreted bythe radiologist and contemporaneously by me. Interpretation time: 12:51 03/15/2020.Laboratory Tests: Laboratory tests have been ordered, with results reviewed and considered in themedical decision making process. US Lower Ext Venous Left: (CARSON: 03/15/2020 11:14) ( NygRcvd 03/15/2020 12:39) In Progress US DOPPLER UNILATERAL VENOUS LEG LT Reason(s): Cold Extremity TRANSPORTATION: IV? O2? Oxygen?(No) Room: ED Beta-HCG, Qual Urine: (CARSON: 03/15/2020 10:55) ( MsgRcvd 03/15/2020 11:09) Final results Test Result Flag Units (Reference) HCG URINE QUAL NEGATIVE (NORMAL: NEGAT 3 Clinical Report - Physicians/Mid Levels [facility] Emergency Department [address] [place] [address] Phone #: ext- [phone] 03/15/2020 10:22 Patient: DAMEON CARRILLO Sex: F : 2000 Age: 19y HCG URINE QL REENTER NEGATIVE (NORMAL: NEGAT { KIT LOT # [id number] ){ KIT EXP DATE01.04.21 ){ PROCEDURAL CONTROL VALID)CBC w Diff: (CARSON: 03/15/2020 10:45) ( MsgRcvd 03/15/2020 10:51) Final results Test Result Flag Units (Reference) CBC W/AUTOMATED DIFF COMPLETE BLOOD COUNT WBC 4.9 10/uL (4.2 - 11.0) RBC 4.56 10/uL (4.20 - 5.40) HEMOGLOBIN 14.4 g/dL (12.0 - 16.0) HEMATOCRIT 41.6 % (37.0 - 47.0) MCV 91.2 fL (81.0 - 101) MCH 31.6 pg (27.0 - 34.0) MCHC 34.6 g/dL (31.0 - 36.0) RDW 11.9 % (11.5 - 14.5) PLATELETS 327 10/uL (150 - 450) MPV 9.5 fL (7.4 - 10.4) NEUT 49.4 % (37.0 - 80.0) LYMPH 38.7 % (25.0 - 40.0) MONO 8.2 H % (3.0 - 8.0) EOS 2.5 % (0.0 - 7.0) BASO 1.0 % (0.0 - 2.5) %IG 0.2 H % (0.0 - 0.0) %NRBC 0.0 % (0.0 - 0.0) #NEUT 2.41 10/uL (2.00 - 6.90) #LYMPH 1.89 10/uL (0.60 - 3.40) #MONO 0.40 10/uL (0.00 - 0.90) #EOS 0.12 10/uL (0.00 - 0.70) #BASO 0.05 10/uL (0.00 - 0.20) #IG 0.01 10/uL (0.00 - 0.10) #NRBC 0.00 10/uL (0.00 - 0.00) MANUAL DIFF NOT INDICATED RBC MORPH NOT INDICATEDCMP: (CARSON: 03/15/2020 10:45) ( MsgRcvd 03/15/2020 11:50) Final results Test Result Flag Units (Reference) COMPREHENSIVE METABOLIC PANEL COMPREHENSIVE METABOLIC PANEL SODIUM 141 mEq/L (134 - 153) POTASSIUM 4.3 mEq/L (3.6 - 5.0) CHLORIDE 104 mEq/L (98 - 107) CO2 27 MEQ/L (22 - 30) GLUCOSE 85 MG/DL (65 - 110) BUN 11 MG/DL (7 - 21) CREATININE 0.7 MG/DL (0.7 - 1.5) BUN/CREAT 16 (8 - 27) TOTAL PROTEIN 7.7 G/DL (6.3 - 8.2) ALBUMIN 5.1 H G/DL (3.9 - 5.0) GLOBULIN 2.6 GM/DL (2.4 - 3.2) A/G RATIO 2.0 (0.8 - 2.0) CALCIUM 10.2 MG/DL (8.4 - 10.2) TOTAL BILI <0.7 MG/DL (0.2 - 1.3) ALKALINE PHOS 51 U/L (38 - 126) SGOT/AST 18 U/L (5 - 40) SGPT/ALT 20 U/L (7 - 56) 4 Clinical Report - Physicians/Mid Levels [facility] Emergency Department [address] [place] [address] Phone #: ext- [phone] 03/15/2020 10:22 Patient: DAMEON CARRILLO Sex: F : 2000 Age: 19y ANION GAP 10.0 mmol/L (8.0 - 16.0) AGE 19 yrs NON-AA GFR >60 mL/min AFR AMER GFR >60 mL/min Male GFR Interprentation 20-49 yrs >60 mL/min Pqsptz90-66 yrs >56 mL/min Normal 60-69 yrs >49 mL/min Normal 70-79yrs>42 mL/min Normal 80 and above >35 mL/min Normal Female GFRInterpretation 20-39 yrs >60 mL/min Normal 40-49 yrs >58 mL/minNormal 50- 59 yrs >51 mL/min Normal 60-69 yrs >45 mL/min Xnrxnw86-46 yrs >39 mL/min Normal 80 and above >32 mL/min NormalD-Dimer: (CARSON: 03/15/2020 10:45) ( [facility] 03/15[facility] 11:04) Final results Test Result Flag Units (Reference) D-DIMER QUANT 0.85 H ug/mL (0.27 - 0.50)Lactic Acid: (CARSON: 03/15/2020 10:45) ( [facility] 03/15/2020 11:10) Final results Test Result Flag Units (Reference) LACTIC ACID 1.2 MMOL/L (0.2 - 2.2)PT/PTT: (CARSON: 03/15/2020 10:45) ( [facility] 03/15/2020 11:04) Final resul ts Test Result Flag Units (Reference) PROTIME 13.5 SECONDS (11.0 - 15.5) INR 0.98 (0.93 - 1.23) PTT 32.4 SECONDS (24.8 - 36.7) \\BLDo\\INR INTERPRETATION\\BLDx\\ Therapeutic range for Coumadin andrelated oral anticoagulants. -International Normalized Ratio (INR): 2.0 - 3.0 for VenousThrombosis, Pulmonary Embolus, Tissue heart valves, Acute NM Atrial Fibrillation, Valvular heart diseaseand recurrent Systemic Embolism. -International Normalized Ratio (INR): 2.5 - 3.5 forMechanical Prosthetic valve.Troponin-T: (CARSON: 03/15/2020 10:45) ( [facility] 03/15/2020 11:28) Final results Test Result Flag Units (Reference) TROPONIN T <0.01 NG/ML (0.00 - 0.10) TROPONIN T0.1 ng/ml Recommended as the clinical threshold value forTroponin T.TSH: (CARSON: 03/15/2020 10:45) ( [facility] 03/15/2020 11:47) Final results Test Result Flag Units (Reference) TSH 1.67 uIU/mL (0.47 - 5.01)Urinalysis: (CARSON: 03/15/2020 10:55) ( [facility] 11:12) Final results Test Result Flag Units (Reference) URINALYSIS URINALYSIS SOURCE R COLOR yellow (NORMAL: Yello CLARITY clear (NORMAL: Clear SPEC GRAVITY 1.030 (1.001 - 1.030 pH 5 (5 - 9) GLUCOSE NORM (NORMAL: Negat BILIRUBIN NEG (NORMAL: Negat KETONE NEG (NORMAL: Negat PROTEIN 15 (NORMAL: Negat 5 Clinical Report - Physicians/Mid Levels [facility] Emergency Department [address] [place] [address] 19 Phone #: ext- [phone] 03/15/2020 10:22 Patient: DAMEON CARRILLO Sex: F : 2000 Age: 19y NITRITE NEG (NORMAL: Negat BLOOD 25 A (NORMAL: Negat LEUK EST 25 (NORMAL: Negat UROBILINOGEN 1 (less than 1.0 MICROSCOPIC See Below WBC 1 - 3 (NORMAL: NONE RBC 1 - 3 (NORMAL: NONE EPITHELIAL MANY A (NORMAL: NONE BACTERIA 3+ LARGE A (NORMAL: NONE Chest Portable 1 View: (CARSON: 03/15/2020 10:37) ( MsgRcvd 03/15/2020 11:14) Canceled Reason(s): Chest Pain Reason(s): Chest Pain TRANSPORTATION: P IV? O2? Oxygen?(No) Room: ED.PROGRESS AND PROCEDURESCourse of Care: 12:58 Mar 15 2020. Pt resting comfortably in exam bed throughout ED course withresolution of symptoms and VSS, PVC's on EKG, will discharge to home, recommend PCM f/u x 3 daysand cardiology referral for further evaluation of PVC's on EKG with symptoms of lightheadedness today.Advised return precautions. Disposition: Discharged home in good and improved condition. Discharge decision based on the following: patient's condition is improved; patient is ambulatory; patient is active; patient's exam is improved; minimally abnormal test results; improving condition on repeat evaluation; social support is adequate; transportation is available; follow-up is available; clinical impression is consistent with outpatient treatment.CLINICAL IMPRESSION Near syncope Abnormal EKG: premature ventricular contractions. INSTRUCTIONS No strenuous activity (until evaluated by cardiology). Rest at home for one days. Avoid stimulants (such as cigarettes, coffee, cold medicines, sinus medicines, street drugs) (until evaluation by data engineer). Do not smoke. No alcohol. Warnings: Further evaluation is necessary in order to conduct further tests. It is very important to follow up with a healthcare provider. GENERAL WARNINGS: Return or contact your physician immediately if your condition worsens or changes unexpectedly, if not improving as expected, or if other problems arise. SPECIFICALLY, return if you develop chest pain, neck pain, jaw pain, shoulder pain, arm pain, back pain, difficulty breathing, a 6 Clinical Report - Physicians/Mid Levels [facility] Emergency Department [address] [place] [address] Phone #: ext- [phone] 03/15/2020 10:22 [facility]: [id number] Sex[facility] F : 2000 Age: 19y fluttering sensation in your chest, lightheadedness, fainting, extreme fatigue or sudden sweating. Your Current Medications: . No home medication. Understanding of the discharge instructions verbalized by patient. Expected course of illness, discharge instructions, activity level, follow-up appointment and risks and benefits of treatment reviewed with patient and understanding verbalized. Agrees to plan of care. Follow-up with: [facility], , , [address] [address] [facility], , [place], [address] Follow up in one day even if well. Call for the next available appointment. Reason for referral: evaluation and recommend cardiology referral for further evaluation of PVC's on EKG and symptoms of lightheadedness. Summary of care provided to patient via paper.(Electronically signed by TITA Pfeiffer 03/15/2020 15:49) Name Value Range Interpretation Code Description Data Bree rce(s) Supporting Document(s) ID Date Data Source [id number] 03/18/2020 06:56:00 AM [facility] Name Value Range Interpretation Code Description Data Bree rce(s) Supporting Document(s) CULTURE URINE [facility] spital _CULTURE URINE_$$[id number]$$[id number]$$[id number]$$[id number]$$[id number]$$[id number]$$[id number]$$[id number]$$[id number]$$ [id number]$$[id number]$$[id number]$$[id number]$$[id number]$$685813$$[id number]$$[id number]$$[id number]$$[id number]$$ [id number]$$[id number]$$[id number]$$[id number]$$[id number]$$[id number]$$[id number]$$[id number] -- Continued on next page --Patient: GERARDO Lazo Order: [id number] Page 2Culture: CULTURE URINE Status: Final ====$$[id number]$$[id number] DATE/TIME: 03/17/2020 20:06Culture: CULTURE URINE Status: FinalUrine Culture,Comprehensive: P1No growth in 36 - 48 hours.P1 Test performed by: [facility] #: [id number] [address] [place] [address] [id number] [facility] [id number] Director : Sudhir John MD NPI #:Human Resources Hr Generalist : [email or web address] REF ID Date Data Source [id number] 03/15/2020 11:11:00 AM EST [facility] Name Value Range Interpretation Code Description Data Bree rce(s) Supporting Document(s) URINALYSIS [facility] jeffrey URINALYSIS SOURCE R [facility] COLOR yellow NORMAL: Yellow [facility] CLARITY clear NORMAL: Clear [facility] Ho spital Specific gravity of Urine by Test strip 1.030 1.001 - 1.030 [facility] 5 5 - [facility] Glucose [Mass/volume] in Urine by Test strip NORM NORMAL: Negat [facility] Bilirubin.total [Presence] in Urine by Test strip NEG NORMAL: Negative [facility] Ketones [Presence] in Urine by Test strip NEG NORMAL: Negative [facility] Protein [Mass/volume] in Urine by Test strip 15 NORMAL: Negat [facility] Nitrite [Presence] in Urine by Test strip NEG NORMAL: Negative [facility] BLOOD 25 NORMAL: Negative [facility] Leukocyte esterase [Presence] in Urine by Test strip 25 MATT L: Negative [facility] Urobilinogen [Mass/volume] in Urine by Test strip 1 less renata n 1.0 mg/dL [facility] MICROSCOPIC See Below [facility] ital WBC 1 - 3 NORMAL: NONE SEEN [facility] Erythrocytes [#/volume] in Urine by Test strip 1 - 3 NORMAL: NON E SEEN [facility] EPITHELIAL MANY NORMAL: NONE SEEN A [facility] Bacteria [Presence] in Urine sediment by Light microscopy 3+ LARGE NORMAL: NONE SEEN A [facility] [facility] Date Data Source [id number] 03/15/2020 11:08:00 AM EST [facility] Name Value Range Interpretation Code Description Data Bree rce(s) Supporting Document(s) HCG URINE QUAL NEGATIVE NORMAL: NEGATIVE [facility] HCG URINE QL REENTER NEGATIVE NORMAL: NEGATIVE [facility] { KIT LOT # [id number] ){ KIT EXP DATE 01.04.21 ){ PROCEDURAL CONTROL VALID ) ID Date Data Source [id number] 03/15/2020 11:49:00 AM EST [facility] Name Value Range Interpretation Code Description Data Bree rce(s) Supporting Document(s) COMPREHENSIVE METABOLIC PANEL [facility] COMPREHENSIVE METABOLIC PANEL Sodium [Moles/volume] in Serum or Plasma 141 mEq/L 134 - 153 [facility] Potassium [Moles/volume] in Serum or Plasma 4.3 mEq/L 3.6 - 5.0 [facility] Chloride [Moles/volume] in Serum or Plasma 104 mEq/L 98 - 107 [facility] Carbon dioxide, total [Moles/volume] in Serum or Plasma 27 MEQ/L 22 - 30 [facility] Glucose [Mass/volume] in Serum or Plasma 85 MG/DL 65 - 110 [facility] BUN 11 MG/DL 7 - 21 [facility] Creatinine [Mass/volume] in Serum or Plasma 0.7 MG/DL 0.7 - 1.5 [facility] BUN/CREAT 16 8 - 27 [facility] Protein [Mass/volume] in Serum or Plasma 7.7 G/DL 6.3 - 8.2 [facility] Albumin [Mass/volume] in Serum or Plasma 5.1 G/DL 3.9 - 5.0 H [facility] Globulin [Mass/volume] in Serum by calculation 2.6 GM/DL 2.4 - 3.2 [facility] A/G RATIO 2.0 0.8 - 2.0 [facility] Calcium [Mass/volume] in Serum or Plasma 10.2 MG/DL 8.4 - 10.2 [facility] Bilirubin.total [Mass/volume] in Serum or Plasma <0.7 MG/DL 0.2 - 1.3 [facility] Alkaline phosphatase [Enzymatic activity/volume] in Serum or Plasma 51 U/L 38 - 126 [facility] Aspartate aminotransferase [Enzymatic activity/volume] in Serum or Plasma 18 U/L 5 - 40 [facility] Alanine aminotransferase [Enzymatic activity/volume] in Seru m or Plasma 20 U/L 7 - 56 [facility] Anion gap 3 in Serum or Plasma 10.0 mmol/L 8.0 - 16.0 [facility] AGE [address] [facility] Hospit al NON-AA GFR >60 mL/min [facility] Hosp ital AFR AMER GFR >60 mL/min [facility] Ho spital Male GFR In terprentation 20-49 yrs >60 mL/min Normal 50-59 yrs >56 mL/min Normal 60-69 yrs >49 mL/min Normal 70-79yrs >42 mL/min Normal 80 and above >35 mL/min Normal Female GFR Interpretation 20-39 yrs >60 mL/min Normal 40-49 yrs >58 mL/min Normal 50-59 yrs >51 mL/min Normal 60-69 yrs >45 mL/min Normal 70-79 yrs >39 mL/min Normal 80 and above >32 mL/min Normal ID Date Data Source [id number] 03/15/2020 11:46:00 AM [facility] Name Value Range Interpretation Code Description Data Bree rce(s) Supporting Document(s) Thyrotropin [Units/volume] in Serum or Plasma by Detec tion limit <= 0.05 mIU/L 1.67 uIU/mL 0.47 - 5.01 [facility] ID Date Data Source [id number] 03/15/2020 11:28:00 AM [facility] Name Value Range Interpretation Code Description Data Bree rce(s) Supporting Document(s) TROPONIN T <0.01 NG/ML 0.00 - 0.10 [facility] ospital TROPONIN T0.1 ng/ml Recommended as the c linical threshold value forTroponin T. ID Date Data Source [id number] 03/15/2020 11:10:00 AM [facility] Name Value Range Interpretation Code Description Data Bree rce(s) Supporting Document(s) Lactate [Moles/volume] in Serum or Plasma 1.2 MMOL/L 0.2 - 2.2 [facility] ID Date Data Source [id number] 03/15/2020 11:04:00 AM [facility] Name Value Range Interpretation Code Description Data Bree rce(s) Supporting Document(s) Fibrin D-dimer FEU [Mass/volume] in Platelet poor plasma 0.85 ug /mL 0.27 - 0.50 H [facility] ID Date Data Source [id number] 03/15/2020 11:04:00 AM [facility] Name Value Range Interpretation Code Description Data Bree rce(s) Supporting Document(s) Prothrombin time (PT) 13.5 SECONDS 11.0 - 15.5 [facility] INR in Platelet poor plasma by Coagulation assay 0.98 0.93 - 1. 23 [facility] aPTT in Blood by Coagulation assay 32.4 SECONDS 24.8 - 36.7 [facility] \\BLDo\\INR INTERPRETATION\\BLDx\\ Therapeutic range for Coumadin and related oral anticoagulants. - International Normalized Ratio (INR): 2.0 - 3.0 for Venous Thrombosis, Pulmonary Embolus, Tissue heart valves, Acute NM Atrial Fibrillation, Valvular heart disease and recurrent Systemic Embolism. - International Normalized Ratio (INR): 2.5 - 3.5 for Mechanical Prosthetic valve. ID Date Data Source [id number] 03/15/2020 10:50:00 AM [facility] Name Value Range Interpretation Code Description Data Bree rce(s) Supporting Document(s) CBC W/AUTOMATED DIFF [facility] COMPLETE BLOOD COUNT Leukocytes [#/volume] in Blood by Automated count 4.9 10^3/uL 4.2 - 1 1.0 [facility] Erythrocytes [#/volume] in Blood by Automated count 4.56 10^6/uL 4. 20 - 5.40 [facility] Hemoglobin [Mass/volume] in Blood 14.4 g/dL 12.0 - 16.0 [facility] Hematocrit [Volume Fraction] of Blood by Automated count 41.6 % 3 7.0 - 47.0 [facility] Erythrocyte mean corpuscular volume [Entitic volume] by Auto mated count 91.2 fL 81.0 - 101 [facility] Erythrocyte mean corpuscular hemoglobin [Entitic mass] by Automated count 31.6 pg 27.0 - 34.0 [facility] Erythrocyte mean corpuscular hemoglobin concentration [Mass/volume] by Automated count 34.6 g/dL 31.0 - 36.0 [facility] Erythrocyte distribution width [Ratio] by Automated count 11.9 % 11.5 - 14.5 [facility] Platelets [#/volume] in Blood by Automated count 327 10^3/uL 150 - 45 0 [facility] Platelet mean volume [Entitic volume] in Blood by Automated count 9.5 fL 7.4 - 10.4 [facility] Neutrophils/100 leukocytes in Blood by Automated count 49.4 % 37. 0 - 80.0 [facility] Lymphocytes/100 leukocytes in Blood by Manual count 38.7 % 25.0 - 40.0 [facility] Monocytes/100 leukocytes in Blood by Automated count 8.2 % 3.0 - 8.0 H [facility] Eosinophils/100 leukocytes in Blood by Automated count 2.5 % 0.0 - 7.0 [facility] Basophils/100 leukocytes in Blood by Automated count 1.0 % 0.0 - 2.5 [facility] %IG 0.2 % 0.0 - 0.0 [facility] %NR[facility] 0.0 % 0.0 - 0.0 [facility] al Neutrophils [#/volume] in Blood by Automated count 2.41 10^3/uL 2.00 - 6.90 [facility] Lymphocytes [#/volume] in Blood by Automated count 1.89 10^3/uL 0.60 - 3.40 [facility] Monocytes [#/volume] in Blood by Automated count 0.40 10^3/uL 0.00 - 0.90 [facility] Eosinophils [#/volume] in Blood by Automated count 0.12 10^3/uL 0.00 - 0.70 [facility] Basophils [#/volume] in Blood by Automated count 0.05 10^3/uL 0.00 - 0.20 [facility] #IG 0.01 10^3/uL 0.00 - 0.10 [facility] H ospital #NRBC 0.00 10^3/uL 0.00 - 0.00 [facility] ospital MANUAL DIFF NOT INDICATED [facility] Hospital RBC MORPH NOT INDICATED [facility] sp[facility] Procedure Vital Signs ID Date Data Source UNK Name Value Range Interpretation Code Description Data Source(s) Oxygen saturation in Arterial blood by Pulse oximetry 99 % 99 % [facility] (Justin Scherer MD) Heart rate 82 /min 82 /min [facility] (Justin Scehrer MD) Diastolic blood pressure 78 mm[Hg] 78 mm[Hg] [facility] (Justin Scherer MD) Systolic blood pressure 124 mm[Hg] 124 mm[Hg] [facility] (Justin Scherer MD) Body temperature 97.2 [degF] 97.2 [degF] [facility] (Justin Scherer MD) Body mass index (BMI) [Ratio] 23.6 kg/m2 23.6 k g/m2 [facility] (Justin Scherer MD) Body weight 137.25 [lb_av] 137.25 [lb_av] [facility] (Justin Scherer MD) Body height 64 [in_i] 64 [in_i] [facility] (Justin Scherer MD) 5'4" Oxygen saturation in Arterial blood by Pulse oximetry 99 % 99 % [facility]Just[facility] Heart rate 88 /min 88 /min [facility] (Justin Scherer MD) Diastolic blood pressure 82 mm[Hg] 82 mm[Hg] [facility] (Justin Scherer MD) Systolic blood pressure 123 mm[Hg] 123 mm[Hg] [facility]Justin Schere[facility] MD[facility] Body temperature 97.5 [degF] 97.5 [degF] [facility] (Justin Scherer MD) Body mass index (BMI) [Ratio] 22.9 kg/m2 22.9 k g/m2 [facility] (Justin Scherer MD) Body weight 133.50 [lb_av] 133.50 [lb_av] [facility] (Justin Scherer MD) Body height 64 [in_i] 64 [in_i] [facility] (Justin Scherer MD) 5'4"
--- OUTSIDE RECORDS SUMMARY | 2020-05-18 11:41 | CCD | Continuity of Care Document ---
Author Author Valentina [facility] Organization Unknown Address [address] [place] [address] Phone [phone] Care Team Providers Care Cover Remover Name Role Phone Israeltegan Bonner [facility] AUT Israel Bonner [facility] AUT [phone] RODRIGUE SCHERER M.D. P.CJuice AUTM [phone] [facility] PCP [phone] Social History Type Date Description Comments Sex Unknown Allergies, Adverse Reactions, Alerts Description No Known Drug Allergies Medications Description No Active Medications Vital Signs Date Vital Result Comment 04/26/2020 2:29pm Height 64 inches 5'4" Weight 133.50 lb BMI (Body Mass Index) 22.9 kg/m2 Body Temperature 97.5 F BP Systolic 123 mmHg BP Diastolic 82 mmHg Heart Rate 88 /min O2 % BldC Oximetry 99 % Procedures Date Code Description Status 04/26/2020 03024 Echocardiogram, Complete Complet ed 04/26/2020 66216 Multistage Exercise Stress Test Completed 04/26/2020 19976 EKG Completed Encounters Type Date Location Provider Dx Diagnosis Office Visit 04/26/2020 2:15p [facility] R07.9 Chest pain, unspecified R53.83 Other fatigue I34.0 Nonrheumatic mitral (valve) insufficiency I25.9 Chronic ischemic heart disea se, unspecified I49.49 Other premature depolarizati on Assessments Date Code Description Provider 04/26/2020 R07.9 Chest pain, unspecified Rodrigue [facility]ras [facility] 04/26/2020 R53.83 Other fatigue Damian Lowery[facility] 04/26/2020 I34.0 Nonrheumatic mitral (valve) insu fficiency [facility] 04/26/2020 I25.9 Chronic ischemic heart disease, unspecified [facility] 04/26/2020 I49.49 Other premature depolarization M maude [facility]herer [facility] Plan of Treatment Future Appointment(s):* 05/06/2020 11:30 am - Rodrig[facility] at [facility] Referrals Refer to Reason for Referral Status Appt Date Rodrigue Scherer M.D. Created [address] [place] [address] [phone]
--- OUTSIDE RECORDS SUMMARY | 2020-05-18 11:41 | CCD | Continuity of Care Document ---
Author Author Valentina LOWERY M[facility] Organization Unknown Address [address] [place] [address] Phone [phone] Care Team Providers Care Harness Cutter Name Role Phone Israeltegan Bonner [facility] AUTM [phone] Israel Bonner [facility] AUTM [phone] RODRIGUE SCHERER M[facility] AUTM [phone] Israel Bonner [facility] PCP [phone] Social History Type Date Description Comments Sex [...] /min O2 % BldC Oximetry 99 % Plan of Treatment Future Appointment(s):* 05/06/2020 11:30 am - Rodrigue [facility] at [facility] Referrals Refer to Reason for Referral Status Appt Date Rodrigue Scherer M.D. Created [address] [place] [address] [phone]
--- OUTSIDE RECORDS SUMMARY | 2020-05-18 11:41 | CCD | Continuity of Care Document ---
Author Author Valentina [facility]ERY [facility] Organization Unknown Address [address] [place] [address] Phone [phone] Care Team Providers Care Minister Name Role Phone Israeltegan Bonner [facility] AUTM [phone] Israel Bonner [facility] AUTM [phone] RODRIGUE SCHERER M[facility] AUTM [phone] Israel Bonner [facility] PCP [phone] Social History Type Date Description Comments Sex [...] % Procedures Date Code Description Status 04/28/2020 05042 24 Hour Holter Monitoring Comple bijan 04/26/2020 32909 Echocardiogram, Complete Complet ed 04/26/2020 06093 Multistage Exercise Stress Test Completed 04/26/2020 55840 EKG Completed Encounters Type Date Location Provider Dx Diagnosis Office Visit 04/26/2020 2:15p [facility] Rodrigue [facility]herer [facility] R07.9 Chest pain, unspecified R53.83 Other fatigue I34.0 Nonrheumatic mitral (valve) insufficiency I25.9 Chronic ischemic heart disea se, unspecified I49.49 Other premature depolarizati on Assessments Date Code Description Provider 04/28/2020 R00.2 Palpitations Damian Lowery[facility] 04/26/2020 R07.9 Chest pain, unspecified Rodrigue As Nick contreras, P[facility] 04/26/2020 R53.83 Other fatigue Damian Lowery[facility] 04/26/2020 I34.0 Nonrheumatic mitral (valve) insu fficiency Rodrigue [facility] 04/26/2020 I25.9 Chronic ischemic heart disease, unspecified [facility] 04/26/2020 I49.49 Other premature depolarization M maude Scherer [facility] Plan of Treatment Future Appointment(s):* 06/06/2020 2:30 pm - Rodrigue [facility] at [facility] Referrals Refer to Reason for Referral Status Appt Date Rodrigue Scherer M.D. Created [address] [place] [address] [phone]
[2020-05-18] MEDS ORDERED: LOPR1TAB6 PO (11:51)
[2020-05-18] MEDS ORDERED: NS 1,000 ML IV ONE (12:30)
[2020-05-18 12:41] LABS: BASO # 0.1 10^3/uL (0.0-0.2); BASO % 1.1 % (0.0-1.0); EOS # 0.2 10^3/uL (0.0-0.5); EOS % 2.2 % (0.0-3.0); HEMATOCRIT 39.2 % (36.0-47.0); HEMOGLOBIN 13.4 g/dl (12.0-15.5); LYMPH # 3.6 10^3/uL (1.5-5.0); LYMPH % 49.4 % (24.0-44.0); MEAN CORPUSCULAR HEMOGLOBIN 30.8 pg (27.0-33.0); MEAN CORPUSCULAR HGB CONC 34.2 g/dl (32.0-36.5); MEAN CORPUSCULAR VOLUME 90.1 fl (80.0-96.0); MONO # 0.6 10^3/uL (0.0-0.8); MONO % 8.5 % (2.0-8.0); NEUTROPHILS # 2.8 10^3/uL (1.5-8.5); NEUTROPHILS % 38.7 % (36.0-66.0); PLATELET COUNT, AUTOMATED 332 10^3/uL (150-450); RED BLOOD COUNT 4.35 10^6/uL (4.00-5.40); WHITE BLOOD COUNT 7.2 10^3/uL (4.0-10.0)
[2020-05-18 13:04] LABS: HCG, SERUM QUALITATIVE NEGATIVE (NEGATIVE)
--- OUTSIDE RECORDS SUMMARY | 2020-05-18 13:07 | CCD ---
Author Author [facility] Organization [facility] Address Unknown Phone Unavailable Care Team Providers [employer] Name Role Phone PHILLIP SCHERER MD Unavailable Unavailable IGNACIAZAKIYABOVU ANDERSON MD Unavailable Unavailable IGNACIAZAKIYABOVU ANDERSON MD Unavailable Unavailable IGNACIAZAKIYABOVU ANDERSON MD Unavailable Unavailable IGNACIAZAKIYABOVU ANDERSON MD Unavailable Unavailable IGNACIAZAKIYABOVU ANDERSON MD Unavailable Unavailable IGNACIASELINQBOVU ANDERSON MD Unavailable Unavailable IGNACIAPHILLIP MD Unavailable Unavailable IGNACIAZAKIYABOVU ANDERSON MD Unavailable Unavailable IGNACIAPHILLIP MD Unavailable Unavailable IGNACIAPHILLIP MD Unavailable Unavailable IGNACIAPHILLIP MD Unavailable Unavailable IGNACIAPHILLIP MD Unavailable Unavailable IGNACIAZAKIYABOVU ANDERSON MD Unavailable Unavailable IGNACIAZAKIYABOVU ANDERSON MD Unavailable Unavailable IGNACIASELINQBOVU ADNERSON MD Unavailable Unavailable IGNACIASELINQBOVU ANDERSON MD Unavailable Unavailable IGNACIAZAKIYABOVU ANDERSON MD Unavailable Unavailable IGNACIAZAKIYABOVU ANDERSON MD Unavailable Unavailable IGNACIAZAKIYABOVU ANDERSON MD Unavailable Unavailable IGNACIAPHILLIP MD Unavailable Unavailable IGNACIA MAQBOVU ANDERSON MD [...] Jen, Karla Gordon PA-C Unavailable Unavailable Jen, Karla Gordon [...] is protected by Article 27-F of the [facility] Public Health law. If you continue you may have access to information: Regarding HIV / AIDS; Provided by facilities licensed or operated by the [facility] Office of Mental Health; or Provided by the [facility] Office for People With Developmental Disabilities. If such information is present, then the following [facility] mandated warning applies: This information has [...] law may result in a fine or halfway sentence or both. A general authorization for the release of medical or other information is NOT sufficient authorization for further disc losure. Encounters Encounter Providers Location Date Indications Data Source(s ) Office Visit Attender: JUSTIN SCHERER MD Medical [facility] 05/06 10:30:00 AM EST [facility] (Justin Scherer MD) Office Visit Attender: JUSTIN SCHERER MD [facility] 04/26 01:15:00 PM EST [facility] (Justin Scherer MD) Emergency Attender: Gordon Li PA-C 10:33:00 AM EST - 03/15/2020 01:04:00 PM [facility] Patient discharged. Medications Medication Brand Name Start [...] type / Coverage type Policy ID Covered alliance party ID Covered alliance party's relationship to robles Policy Robles Plan Information [facility] ACTIVE DUTY [id number] SP [id number] [facility] ACTIVE DUTY [id number] SP [id number] [facility] HUMANA - O/P [id number] 18 [id number] Problems, Conditions, and Diagnoses Code Display Name Description Problem Type Effective Dates Data Source(s) R55 Syncope and collapse Syncope and collapse Diagnosis 03/15/2020 10:33:00 AM [facility] I493 Ventricular premature depolarization Ventricular premature depolarization Diagnosis 03/15/2020 10:33:00 AM [facility] R0789 Other chest pain Other chest pain Diagnosis 03/15/2020 10 :33:00 AM [facility] Surgeries/Procedures Procedure Description Date Indications Data Source(s) [...] Scherer MD) Results ID Date Data Source [id number] 03/16/2020 11:55:00 PM [facility] [address] [place] [address] RESPIRATORY CARE REPORT ==== ---------NAME------- NUMBER SEX AGE ADMIT DISC. XRAY# F/C CLAUDIA XIAO D [id number] F 19 03/15/20 03/15/202099411598 SB4 E/R DATE OF : 2000 M/R# [id number] #: [id number] RM VT-01 LOCATION: EMERGENCY DEPT EKG 42110 COMPLE TE:03/15/20 14:18 CJM 59076 PHYSICIAN: JEN IVETH Name Value Range Interpretation Code Description Data Bree rce(s) Supporting Document(s) ID Date Data Source [id number] 03/16/2020 11:32:00 AM EST [facility] [address] [place] [address] PHONE: [phone] FAX: [phone] Name .................. : GERARDO Lazo Acct Number.................. : [id number] ROOM. ................. : VT-01 Number ................... : [id number] Stay type ............. : E/R Discharge Date......... ... : 03/15/20 Admit Date .... ..... : 03/15/20 Admit Phys .................... : JEN IVETH Date of ....... : 2000 Family Phys ................... : UNKNOWN Phone .................. : [phone] Age ................................ : 19 Film# .................. .:[id number] Sex ................................. : F Unsigned transcriptions are preliminary reports and do not represent a medical or legal document CT CTA CHEST NON-CORONARY Marce Mike 54757 COMPLETE:03/15/20 11:14 218 Reason(s): light headed dizziness, [...] imperative reconstructive techniques. Page 1 of 2 [facility] [address] [place] [address] PHONE: [phone] FAX: [phone] Name .................. : GERARDO Lazo Acct Number.................. : [id number] ROOM. ................. : VT-01 Number ................... : [id number] Stay type ............. : E/R Discharge Date......... ... : 03/15/20 Admit Date ......... : 03/15/20 Admit Phys .................... : JEN [facility] Date of ....... : 2000 Family Phys ................... : UNKNOWN Phone .................. : [phone] Age ................................ : 19 Film# .................. .:[id number] Sex ................................. : F Unsigned transcriptions are preliminary reports and do not represent a medical or legal document CT CTA CHEST NON- CORONARY W Cee 20153 COMPLETE:03/15/20 11:14 218 Reason(s): light headed dizziness, [...] rce(s) Supporting Document(s) ID Date Data Source [id number] 03/16/2020 11:31:00 [place] [address] PHONE: [phone] FAX: [phone] Name .................. : GERARDO Lazo Acct Number.................. : [id number] ROOM. ................. : VT-01 MR Number ................... : [id number] Stay type ............. : E/R Discharge Date......... ... : 03/15/20 Admit Date ....... .. : 03/15/20 Admit Phys .................... : JEN LAZARO Date of ....... : 2000 Family Phys ................... : UNKNOWN Phone .................. : [phone] Age ................................ : 19 Film# .................. .:[id number] Sex ................................. : F Unsigned transcriptions are preliminary reports and do not represent a medical or legal document DOPPLER UNILATERAL VENOUS 22959 COMPLETE:03/15/20 12:39 MCM 219 Reason(s): Cold Extremity [...] MD , 03/16/20 11:31, APM Transcribe Initials: [facility], Transcribe Date: 03/15/20 14:02, Dictation Date: Copy for: JEN Acosta via fax Copy for: EMERGENCY DEPT via [facility] Copy for: 710 MED REC DISCHARGED Page 1 of 1 Name Value Range Interpretation Code Description Data Bree rce(s) Supporting Document(s) ID Date Data Source [id number] 03/15/2020 10:33:00 AM EST [facility] 1 OrderSheet [facility] Emergency Department [address] [place] [address] Phone #: ext- [phone] 03/15/2020 10:22 Patient: DAMEON CARRILLO [facility]#: [id number] Sex: F : 2000 Age: 19yWEIGHT:58.9 kg (S) HEIGHT:64 inches (S) BMI:22.3ALLERGIES: No Known Drug AllergyCHIEF COMPLAINT: chest painDIAGNOSIS: Electrocardiogram abnormal, Near syncopeLAB ORDERSOrder Description Priority Entered Acknowledged InitialedBeta-HCG, Qual STAT 10:37 03/15/2020 10:43 Paloma,Urine Gordon RIVERS; Loulou R.EvelynCBC w Diff STAT 10:37 03/15/2020 10:43 Gordon Dow; Loulou Beard.NJuiceCMP STAT 10:37 03/15/2020 10:43 Gordon Bertrand; Loulou HarveyD-Dimer STAT 10:37 03/15/2020 10:43 Gordon Dow; Loulou HarveyLactic Acid STAT 10:37 03/15/2020 10:43 Gordon Dow; Loulou Beard.EvelynPT/PTT STAT 10:37 03/15/2020 10:43 Gordon Dow; Loulou Beard.EvelynTroponin-T STAT 10:37 03/15/2020 10:43 Gordon Dow; Loulou Beard.Justin.TSH STAT 10:37 03/15/2020 10:43 Gordon Dow; Loulou R.NJuiceUrinalysis (Clean STAT 10:37 03/15/2020 Ack'd: 10:43 10:55 [facility]) Gordon RIVERS; Loulou Dow escalator attendant, Good CRISTOBAL R.NJuice [id number], Urine STAT 12:55 03/15/2020 12:55 Paloma,(Urine, Clean Gordon RIVERS; Loulou R.NJuiceCatch)DIAGNOSTIC STUDY ORDERSOrder Description Priority Entered Acknowledged InitialedChest Portable 1 STAT 10:37 03/15/2020 Ack'd: 10:43 Loulou Dow R.N.View Gordon RIVERS; Cancelled: Other 11:14 Gordon Li(Oxygen?(No)) TITA Reason for Study: Chest PainCT CTA CHEST STAT 11:14 03/15/2020 Ack'd: 11:17 11:44 Renetta, 2 OrderSheet [facility] Emergency Department [address] [place] [address] Phone #: ext- [phone] 03/15/2020 10:22 Patient: DAMEON CARRILLO Se x: F : 2000 Age: 19y(NONCOR) W CON Gordon RIVERS; Loulou Dow R.N.INC PP R.N.(Oxygen?(No))(IV?(Yes)) Reason for Study: light headed dizziness, chest pain, elevated d dimer, ? PEUS Lower Ext STAT 11:14 03/15/2020 Ack'd: 11:17 12:21 BurnhamVenous Left Gordon RIVERS; Loulou Dow escalator attendant, Good ER(Oxygen?(No)) R.N. Tech1 Reason for Study: Cold Extremity, Lower Ext Pain/ImmobilityMEDICATION/IV/DRIP/FLUID ORDERSOrder Description Priority Entered Acknowledged InitialedNS IV : Bolus 500 11:14 03/15/2020 Ack'd: 11:17 12:06 Paloma,mL, then 100 mL/hr Gordon RIVERS; Loulou Dow.NJuice(NOW x1) R.N.GENERAL ORDERSOrder Description Priority Entered Acknowledged InitialedCardiac Monitor 10:37 03/15/2020 10:40 Margo(continuous) Gordon RIVERS; escalator attendant, Good ER Hiiw0Aataw Pressure 10:37 03/15/2020 10:40 MargoMonitor Gordon RIVERS; escalator attendant, Good ER Odsw5Bdgbjaizo 10:37 03/15/2020 10:59 Gordon Dow R.N.EKG 10:37 03/15/2020 10:40 Margo RIVERS; escalator attendant, Good ER Saia3Gwuxv Oximetry 10:37 03/15/2020 10:43 Ondina Dow; Loulou HarveyObtain Old EKG 10:37 03/15/2020 10:43 Gordon Dow; Loulou HarveySaline Lock 10:37 03/15/2020 10:43 Gordon Dow; Loulou HarveyVitals 10:37 03/15/2020 10:43 Gordon Dow; Loulou HarveyWarm blanke t 10:37 03/15/2020 10:43 Gordon Dow; Loulou Harvey[Electronically signed by Loulou Dow R.N. (13:14 03/15/2020)] 3 OrderSheet [facility] Emergency Department [address] [place] [address] Phone #: ext- [phone] 03/15/2020 10:22 Patient: DAMEON CARRILLO Sex: F : 2000 Age: 19y[Electronically signed by Gordon Li (15:49 03/15)][Electronically locked by Loulou Dow R.N. (13:14 03/15/2020)] Name Value Range Interpretation Code Description Data Bree rce(s) Supporting Document(s) ID Date Data Source [id number] 03/15/2020 10:33:00 AM EST [facility] 1 Medication Reconciliation Report [facility] Emergency Department [address] [place] [address] Phone #: ext- [phone] 03/15/2020 10:22 Patient: [...] rce(s) Supporting Document(s) ID Date Data Source [id number] 03/15/2020 10:33:00 AM [place] [address] Medication Administration Record [facility] Emergency Department [address] [place] [address] Phone #: wdu- [phone] 03/15/2020 10:22 Patient: DAMEON CARRILLO Sex: F : 2000 Age: 19yWeight: 58.9 kgHeight/Length: 64 inBMI: 22.3ALLERGIES: No Known Drug Allergy Date/Time Medication Administered Medication OrderedStart NS [IV] NS IV : Bolus 500 mL, then 53850:06 03/15/2020 Dose: IV Fluids mL/hr (NOW x1)Loulou Dow RRadha Rate: 100 mL/hr---- Bolus: 500 mL wide openStop Dispensed: 1000 mL bag12:58 03/15/2020 Site: #1 left Loulou Bridges RRadha Name Value Range Interpretation Code Description Data Bree e(s) Supporting Document(s) ID Date Data Source [id number] 03/15/2020 10:33:00 AM [place] [address] General Instructions [facility] Emergency Department [address] [place] [address] Phone #: ext- [phone] 03/15/2020 10:22 Patient: DAMEON CARRILLO [facility]#: [id number] Sex: F : 2000 Age: 19yNear syncopeAbnormal EKG: premature ventricular contractions.INSTRUCTIONSNo strenuous activity (until evaluated by cardiology). Rest at home for one days.Avoid stimulants (such as cigarettes, coffee, cold medicines, sinus medicines, street drugs) (untilevaluation by coagulating bath mixer). Do not smoke. No alcohol.Warnings: Further evaluation [...] to plan of care.Follow-up with: [facility], , , [address], , [place], [address] Follow up in one day even if [...] don't actually lose consciousness. 2 General Instructions [facility] Emergency Department [address] [place] [address] Phone #: ext- [phone] 03/15/2020 10:22 Patient: [...] attack Heart valve problems 3 General Instructions [facility] Emergency Department [address] [place] [address] Phone #: ext- [phone] 03/15/2020 10:22 Patient: [...] or as advised.Call 911Call 911 or seek [facility] care if any of the following occur: [...] a more frequent basis 4 General Instructions [facility] Emergency Department [address] [place] [address] Phone #: ext- [phone] 03/15/2020 10:22 Patient: DAMEON CARRILLO Sex: F : 2000 Age: 19y 7711-[address] [place] [address]. All rights reserved. This information is not [...] rce(s) Supporting Document(s) ID Date Data Source [id number] 03/15/2020 10:33:00 AM EST [facility] 1 Clinical Report - Nurses [facility] Emergency Department [address] [place] [address] Phone #: ext- [phone] 03/15/2020 10:22 Patient: [...] Height/Length: 64 inches Per Patient. BMI: 22.3. --10:23 03/15/20 LEONID Deshpande.MedicationsNone. --10:28 03/15/20 Adore Espinal RN.AllergiesNo Known Drug Allergy. --10:28 03/15/20 Adore Espinal RN.PROBLEMS:no known problems.ADDITIONAL SURGERIES:Appendectomy [05/2019]. --10:28 03/15/20 Adore Espinal RN.Robixrt40:24 03/15/20.PAST MEDICAL HX: Immunizations: up-to-date. Last normal menstrual period was 1 week ago. Deniescurrent .SOCIAL HX: Never smoker. Occasional alcohol use. No drug use. The patient was offered HIV testingbut declined and hepatitis C testing but declined. The patient has not traveled outside the [place] 2 Clinical Report - Nurses [facility] Emergency Department [address] [place] [address] Phone #: tqs- [phone] 03/15/2020 10:22 Patient: DAMEON CARRILLO Sex: F [...] Ambulatory by hospital staff. to room 2. --10:30 03/15/20 Adore Espinal RN.PHYSICAL ASSESSMENTAmbulatory to room.GENERAL / [...] 03/15/20 Loulou Dow R.N.NURSING PROGRESS NOTES10:24 03/15/20. security monitor, NIBP monitor and pulse oximeter placed on patient; environmental monitoring specialist-Lead II; monitor alarms on; monitor strip scanned to medical record. Patient gowned. Head of bedelevated. Two patient identifiers checked. Call light placed in reach. Side rails up x 2. Bed placed inlowest position. Brakes of bed on. Patient ready for evaluation- PA notified. --10:03/15/20 LEONID Deshpande 3 Clinical Report - Nurses [facility] Emergency Department [address] [place] [address] Phone #: ext- [phone] 03/15/2020 10:22 [id number] Sex: F : 2000 Age: 19y10:25 03/15/20. EKG time: (10:03/15/2020). EKG was ordered, performed by a danyel and shown ghislaine RIVERS. --10:31 03/15/20 Adore [...] --10:59 03/15/20 Loulou Dow R.N.Patient transported to [place] by wheelchair with mask and large animal husbandry technician. --11:44 03/15/20 Apple Jackson R.N.Patient returned from [place] by wheelchair with large animal husbandry technician. --11:55 03/15/20 [facility] Emtz328:06 03/15/2020 Started bag #1 1000 mL IV [...] 74. RR: 19. O2 saturation: 100%. --12:30 03/15/20[facility], [facility] Te ch111:30 03/15/20. BP: 121/76. MAP: 91. HR: 72. RR: 22. O2 saturation: 100%. --12:30 03/15/20 [facility] Fnbh903:00 03/15/20. BP: 122/86. MAP: 98. HR: 74. RR: 17. O2 saturation: 100%. --12:31 03/15/20 [facility] Good, Uhco135:31 03/15/20. BP: 129/75. MAP: 93. HR: 78. RR: 16. O2 saturation: 100%. --12:31 03/15/20 [facility] Laor163:58 03/15/2020 Site #1 removed upon discharge. Catheter intact. Bandage applied. --12:03/15/20Loulou Dow R.N.12:58 03/15/2020 IV Fluids NS via IV site #1 Discontinued: bag #1 STOPPED upon discharge. Total 4 Clinical Report - Nurses [facility] Emergency Department [address] [place] [address] Phone #: ext- [phone] 03/15/2020 10:22 Patient: DAEMON CARRILLO Sex: F : 2000 Age: 19y amount infused: 560ml mL. IV patency established. IV site checked: no pain, redness, or swelling. IV flushed thoroughly. --12:58 03/15/20 Loulou Dow R.N.DISPOSITION / DISCHARGE 13:04 03/15/20. Departure time: late entry - 13:03/15/2020. Condition at departure: improved. No learning barriers present. Discharge instructions provided and reviewed with the patient. Reviewed referral to a coagulating bath mixer and primary care physician for followup. Activity restrictions (rest) reviewed. Work note given. Patient verbalized understanding. Written instructions provided in Syrian. The patient was discharged by the physician marketing assistant. She was discharged home and accompanied [...] rce(s) Supporting Document(s) ID Date Data Source [id number] 03/15/2020 10:33:00 AM EST [facility] 1 Clinical Report - Physicians/Mid Levels [facility] Emergency Department [address] [place] [address] Phone #: ext- [phone] 03/15/2020 10:22 Patient: [...] NOTES 2 Clinical Report - Physicians/Mid Levels [facility] Emergency Department [address] [place] [address] Phone #: ext- [phone] 03/15/2020 10:22 Patient: [...] duplex sonography.The exam was performed by a wind energy technician. The study was independently viewed by me and interpreted bythe radiologist and contemporaneously by me. Interpretation time: 12:51 03/15/2020.Laboratory Tests: Laboratory tests have been ordered, with results reviewed and considered in themedical decision making process. US Lower Ext Venous Left: (CARSON: 03/15/2020 11:14) ( MsgRcvd 03/15/2020 12:39) In Progress US DOPPLER UNILATERAL VENOUS LEG LT Reason(s): Cold Extremity TRANSPORTATION: IV? O2? Oxygen?(No) Room: ED Beta-HCG, Qual Urine: (CARSON: 03/15/2020 10:55) ( MsgRcvd 03/15/2020 11:09) Final results Test Result Flag Units (Reference) HCG URINE QUAL NEGATIVE (NORMAL: NEGAT 3 Clinical Report - Physicians/Mid Levels [facility] Emergency Department [address] [place] [address] Phone #: ext- [phone] 03/15/2020 10:22 Patient: DAMEON CARRILLO Sex: F : 2000 Age: 19y HCG URINE QL REENTER NEGATIVE (NORMAL: NEGAT { KIT LOT # [id number] ){ KIT EXP DATE01.04.21 ){ PROCEDURAL CONTROL [...] 56) 4 Clinical Report - Physicians/Mid Levels [facility] Emergency Department [address] [place] [address] Phone #: ext- [phone] 03/15/2020 10:22 [id number] Sex: F : 2000 Age: 19y ANION GAP 10.0 mmol/L (8.0 - 16.0) AGE 19 yrs NON-AA GFR >60 mL/min AFR AMER GFR >60 mL/min Male GFR Interprentation 20-49 yrs >60 mL/min Elkyru39-86 yrs >56 mL/min Normal 60-69 yrs >49 mL/min Normal 70-79yrs>42 mL/min Normal 80 and above >35 mL/min Normal Female GFRInterpretation 20-39 yrs >60 mL/min Normal 40-49 yrs >58 mL/minNormal 50- 59 yrs >51 mL/min Normal 60-69 yrs >45 mL/min Bzlqmn04-53 yrs >39 mL/min Normal 80 and above >32 mL/min NormalD-Dimer: (CARSON: 03/15/2020 10:45) ( [facility] 03/15/2020 11:04) Final results Test Result Flag Units (Reference) D-DIMER QUANT 0.85 H ug/mL (0.27 - 0.50)Lactic Acid: (CARSON: 03/15/2020 10:45) ( [facility] 03/15/2020 11:10) Final results Test Result Flag Units (Reference) LACTIC ACID 1.2 MMOL/L (0.2 - 2.2)PT/PTT: (CARSON: 03/15/2020 10:45) ( [facility] 03/15/2020 11:04) Final resul ts Test Result Flag Units (Reference) PROTIME 13.5 SECONDS (11.0 - 15.5) INR 0.98 (0.93 - 1.23) PTT 32.4 SECONDS (24.8 - 36.7) \\BLDo\\INR INTERPRETATION\\BLDx\\ Therapeutic range for Coumadin andrelated oral anticoagulants. -International Normalized Ratio (INR): 2.0 - 3.0 for VenousThrombosis, Pulmonary Embolus, Tissue heart valves, Acute NH Atrial Fibrillation, Valvular heart diseaseand recurrent Systemic Embolism. -International Normalized Ratio (INR): 2.5 - 3.5 forMechanical Prosthetic valve.Troponin-T: (CARSON: 03/15/2020 10:45) ( [facility] 03/15/2020 11:28) Final results Test Result Flag Units (Reference) TROPONIN T <0.01 NG/ML (0.00 - 0.10) TROPONIN T0.1 ng/ml Recommended as the clinical threshold value forTroponin T.TSH: (CARSON: 03/15/2020 10:45) ( [facility] 03/15/2020 11:47) Final results Test Result Flag Units (Reference) TSH 1.67 uIU/mL (0.47 - 5.01)Urinalysis: (CARSON: 03/15/2020 10:55) ( [facility] 11:12) Final results Test Result Flag Units (Reference) URINALYSIS URINALYSIS SOURCE R COLOR yellow (NORMAL: Yello CLARITY clear (NORMAL: Clear SPEC GRAVITY 1.030 (1.001 - 1.030 pH 5 (5 - 9) GLUCOSE NORM (NORMAL: Negat BILIRUBIN NEG (NORMAL: Negat KETONE NEG (NORMAL: Negat PROTEIN 15 (NORMAL: Negat 5 Clinical Report - Physicians/Mid Levels [facility] Emergency Department [address] [place] [address] Phone #: ext- [phone] 03/15/2020 10:22 Patient: [...] sinus medicines, street drugs) (until evaluation by coagulating bath mixer). Do not smoke. No alcohol. Warnings: Further [...] a 6 Clinical Report - Physicians/Mid Levels [facility] Emergency Department [address] [place] [address] Phone #: ext- [phone] 03/15/2020 10:22 [id number] Sex: F : 2000 Age: 19y fluttering [...] plan of care. Follow-up with: [facility] CLIN[facility], , , [address] [place] [address], , [place], [address] Follow up in one day even if well. Call for the next available appointment. Reason for referral: evaluation and recommend cardiology referral for further evaluation of PVC's on EKG and symptoms of lightheadedness. Summary of care provided to patient via paper.(Electronically signed by TITA Pfeiffer 03/15/2020 15:49) Name Value Range Interpretation Code Description Data Bree rce(s) Supporting Document(s) ID Date Data Source [id number] 03/18/2020 06:56:00 AM EST [facility] Name Value Range Interpretation Code Description Data Bree rce(s) Supporting Document(s) CULTURE URINE [facility] spital _CULTURE URINE_$$[id number]$$[id number]$$974258$$[id number]$$553446$$630088$$792431$$965500$$683359$$ 277545$$556841$$374003$$579486$$779174$$664125$$946856$$576352$$084018$$203086$$ 204125$$427523$$550348$$409600$$024638$$963843$$945940$$990017 -- Continued on next page --Patient: GERARDO Lazo Order: [id number] Page 2Culture: CULTURE URINE Status: Final ====$$[id number]$$[id number] DATE/TIME: 03/17/2020 20:06Culture: CULTURE URINE Status: FinalUrine Culture,Comprehensive: P1No growth in 36 - 48 hours.P1 Test performed by: [facility] CLAUDETTE #: [id number] [address] [place] [id number] [facility] [id number] Director : Sudhir John MD NPI #:Reservation Agent : [id number] REF ID Date Data Source [id number] 03/15/2020 11:11:00 AM EST [facility] Name Value Range Interpretation Code Description Data Bree rce(s) Supporting Document(s) [facility] COL[facility] yellow NORMAL: Yellow [facility] CLARITY clear NORMAL: Clear [facility] Specific gravity of Urine by Test strip 1.030 1.001 - 1.030 [facility] pH 5 5 - 9 [facility] Glucose [Mass/volume] in Urine by Test strip NORM NORMAL: Negat [facility] Bilirubin.total [Presence] in Urine by Test strip NEG NORMAL: Negative [facility] Ketones [Presence] in Urine by Test strip NEG NORMAL: Negative [facility] Protein [Mass/volume] in Urine by Test strip 15 NORMAL: Negat [facility] Nitrite [Presence] in Urine by Test strip NEG NORMAL: Negative [facility] BLOOD 25 NORMAL: Negative [facility] Leukocyte esterase [Presence] in Urine by Test strip 25 MATT L: Negative [facility] Urobilinogen [Mass/volume] in Urine by Test strip 1 less renata n 1.0 mg/dL [facility] MICROSCOPIC See Below [facility] ital WBC 1 - 3 NORMAL: NONE SEEN [facility] Erythrocytes [#/volume] in Urine by Test strip 1 - 3 NORMAL: NON E SEEN [facility] EPITHELIAL MANY NORMAL: NONE SEEN A [facility] Bacteria [Presence] in Urine sediment by Light microscopy 3+ LARGE NORMAL: NONE SEEN A [facility] ID Date Data Source [id number] 03/15/2020 11:08:00 AM EST [facility] Name Value Range Interpretation Code Description Data Bree rce(s) Supporting Document(s) HCG URINE QUAL NEGATIVE NORMAL: NEGATIVE [facility] HCG URINE QL REENTER NEGATIVE NORMAL: NEGATIVE [facility] { KIT LOT # [id number] ){ KIT EXP DATE 01.04.21 ){ PROCEDURAL CONTROL VALID ) ID Date Data Source [id number] 03/15/2020 11:49:00 AM EST [facility] Name Value Range Interpretation Code Description Data Bree rce(s) Supporting Document(s) COMPREHENSIVE METABOLIC PANEL [facility] COMPREHENSIVE METABOLIC PANEL Sodium [Moles/volume] in Serum or Plasma 141 mEq/L 134 - 153 [facility] Potassium [Moles/volume] in Serum or Plasma 4.3 mEq/L 3.6 - 5.0 [facility] Chloride [Moles/volume] in Serum or Plasma 104 mEq/L 98 - 107 [facility] Carbon dioxide, total [Moles/volume] in Serum or Plasma 27 MEQ/L 22 - 30 [facility] Glucose [Mass/volume] in Serum or Plasma 85 MG/DL 65 - 110 [facility] BUN 11 MG/DL 7 - 21 [facility] Creatinine [Mass/volume] in Serum or Plasma 0.7 MG/DL 0.7 - 1.5 [facility] BUN/CREAT 16 8 - 27 [facility] Protein [Mass/volume] in Serum or Plasma 7.7 G/DL 6.3 - 8.2 [facility] Albumin [Mass/volume] in Serum or Plasma 5.1 G/DL 3.9 - 5.0 H [facility] Globulin [Mass/volume] in Serum by calculation 2.6 GM/DL 2.4 - 3.2 [facility] A/G RATIO 2.0 0.8 - 2.0 [facility] Calcium [Mass/volume] in Serum or Plasma 10.2 MG/DL 8.4 - 10.2 [facility] Bilirubin.total [Mass/volume] in Serum or Plasma <0.7 MG/DL 0.2 - 1.3 [facility] Alkaline phosphatase [Enzymatic activity/volume] in Serum or Plasma 51 U/L 38 - 126 [facility] Aspartate aminotransferase [Enzymatic activity/volume] in Serum or Plasma 18 U/L 5 - 40 [facility] Alanine aminotransferase [Enzymatic activity/volume] in Seru m or Plasma 20 U/L 7 - 56 [facility] Anion gap 3 in Serum or Plasma 10.0 mmol/L 8.0 - 16.0 [facility] AGE 19 yrs [facility] al NON-AA GFR >60 mL/min [facility] ital AFR AMER GFR >60 mL/min [facility] Ho spital Male GFR In terprentation 20-49 [...] >32 mL/min Normal ID Date Data Source [id number] 03/15/2020 11:46:00 AM [facility] Name Value Range Interpretation Code Description Data Bree rce(s) Supporting Document(s) Thyrotropin [Units/volume] in Serum or Plasma by Detec tion limit <= 0.05 mIU/L 1.67 uIU/mL 0.47 - 5.01 [facility] ID Date Data Source [id number] 03/15/2020 11:28:00 AM [facility] Name Value Range Interpretation Code Description Data Bree rce(s) Supporting Document(s) TROPONIN T <0.01 NG/ML 0.00 - 0.10 [facility] ospital TROPONIN T0.1 ng/ml Recommended as the c linical threshold value forTroponin T. ID Date Data Source [id number] 03/15/2020 11:10:00 AM [facility] Name Value Range Interpretation Code Description Data Bree rce(s) Supporting Document(s) Lactate [Moles/volume] in Serum or Plasma 1.2 MMOL/L 0.2 - 2.2 [facility] ID Date Data Source [id number] 03/15/2020 11:04:00 AM [facility] Name Value Range Interpretation Code Description Data Bree rce(s) Supporting Document(s) Fibrin D-dimer FEU [Mass/volume] in Platelet poor plasma 0.85 ug /mL 0.27 - 0.50 H [facility] ID Date Data Source [id number] 03/15/2020 11:04:00 AM [facility] Name Value Range Interpretation Code Description Data Bree rce(s) Supporting Document(s) Prothrombin time (PT) 13.5 SECONDS 11.0 - 15.5 [facility] INR in Platelet poor plasma by Coagulation assay 0.98 0.93 - 1. 23 [facility] aPTT in Blood by Coagulation assay 32.4 SECONDS 24.8 - 36.7 [facility] \\BLDo\\INR INTERPRETATION\\BLDx\\ Therapeutic range for Coumadin and related oral anticoagulants. - International Normalized Ratio (INR): 2.0 - 3.0 for Venous Thrombosis, Pulmonary Embolus, Tissue heart valves, Acute NH Atrial Fibrillation, Valvular heart disease and recurrent Systemic Embolism. - International Normalized Ratio (INR): 2.5 - 3.5 for Mechanical Prosthetic valve. ID Date Data Source [id number] 03/15/2020 10:50:00 AM [facility] Name Value Range Interpretation Code Description Data Bree rce(s) Supporting Document(s) CBC W/AUTOMATED DIFF [facility] COMPLETE BLOOD COUNT Leukocytes [#/volume] in Blood by Automated count 4.9 10^3/uL 4.2 - 1 1.0 [facility] Erythrocytes [#/volume] in Blood by Automated count 4.56 10^6/uL 4. 20 - 5.40 [facility] Hemoglobin [Mass/volume] in Blood 14.4 g/dL 12.0 - 16.0 [facility] Hematocrit [Volume Fraction] of Blood by Automated count 41.6 % 3 7.0 - 47.0 [facility] Erythrocyte mean corpuscular volume [Entitic volume] by Auto mated count 91.2 fL 81.0 - 101 [facility] Erythrocyte mean corpuscular hemoglobin [Entitic mass] by Automated count 31.6 pg 27.0 - 34.0 [facility] Erythrocyte mean corpuscular hemoglobin concentration [Mass/volume] by Automated count 34.6 g/dL 31.0 - 36.0 [facility] Erythrocyte distribution width [Ratio] by Automated count 11.9 % 11.5 - 14.5 [facility] Platelets [#/volume] in Blood by Automated count 327 10^3/uL 150 - 45 0 [facility] Platelet mean volume [Entitic volume] in Blood by Automated count 9.5 fL 7.4 - 10.4 [facility] Neutrophils/100 leukocytes in Blood by Automated count 49.4 % 37. 0 - 80.0 [facility] Lymphocytes/100 leukocytes in Blood by Manual count 38.7 % 25.0 - 40.0 [facility] Monocytes/100 leukocytes in Blood by Automated count 8.2 % 3.0 - 8.0 H [facility] Eosinophils/100 leukocytes in Blood by Automated count 2.5 % 0.0 - 7.0 [facility] Basophils/100 leukocytes in Blood by Automated count 1.0 % 0.0 - 2.5 [facility] %IG 0.2 % 0.0 - 0.0 H [facility] al %NRBC 0.0 % 0.0 - 0.0 [facility] al Neutrophils [#/volume] in Blood by Automated count 2.41 10^3/uL 2.00 - 6.90 [facility] Lymphocytes [#/volume] in Blood by Automated count 1.89 10^3/uL 0.60 - 3.40 [facility] Monocytes [#/volume] in Blood by Automated count 0.40 10^3/uL 0.00 - 0.90 [facility] Eosinophils [#/volume] in Blood by Automated count 0.12 10^3/uL 0.00 - 0.70 [facility] Basophils [#/volume] in Blood by Automated count 0.05 10^3/uL 0.00 - 0.20 [facility] #IG 0.01 10^3/uL 0.00 - 0.10 [facility] #NRBC 0.00 10^3/uL 0.00 - 0.00 [facility] MANUAL DIFF NOT INDICATED [facility] RBC MORPH NOT INDICATED [facility] Procedure Vital Signs ID Date Data Source UNK Name Value Range Interpretation Code Description Data Source(s) Oxygen saturation in Arterial blood by Pulse oximetry 99 % 99 % [facility] (Justin Scherer MD) Heart rate 82 /min 82 /min [facility] (Justin Scherer MD) Diastolic blood pressure 78 mm[Hg] 78 mm[Hg] [facility] (Justin Scherer MD) Systolic blood pressure 124 mm[Hg] 124 mm[Hg] [facility]Just[facility]here[facility] Body temperature 97.2 [degF] 97.2 [degF] [facility] (Justin Scherer MD) Body mass index (BMI) [Ratio] 23.6 kg/m2 23.6 k g/m2 [facility] (Justin Scherer MD) Body weight 137.25 [lb_av] 137.25 [lb_av] [facility] (Justin Scherer MD) Body height 64 [in_i] 64 [in_i] [facility] (Justin Scherer MD) 5'4" Oxygen saturation in Arterial blood by Pulse oximetry 99 % 99 % [facility] (Justin Scherer MD) Heart rate 88 /min 88 /min [facility] (Justin Scherer MD) Diastolic blood pressure 82 mm[Hg] 82 mm[Hg] [facility] (Justin Scherer MD) Systolic blood pressure 123 mm[Hg] 123 mm[Hg] M [facility] (Justin Scherer MD) Body temperature 97.5 [degF] 97.5 [degF] [facility] (Justin Scherer MD) Body mass index (BMI) [Ratio] 22.9 kg/m2 22.9 k g/m2 [facility] (Justin Scherer MD) Body weight 133.50 [lb_av] 133.50 [lb_av] [facility] (Justin Scherer MD) Body height 64 [in_i] 64 [in_i] [facility] (Justin Scherer MD) 5'4"
[2020-05-18 13:11] LABS: BLOOD UREA NITROGEN 12 MG/DL (7-18); CALCIUM LEVEL 9.8 MG/DL (8.5-10.1); CARBON DIOXIDE LEVEL 23 MEQ/L (21-32); CHLORIDE LEVEL 106 MEQ/L (98-107); CREATININE FOR GFR 0.84 MG/DL (0.55-1.30); GLOMERULAR FILTRATION RATE > 60.0 (>60); GLUCOSE, FASTING 102 MG/DL (70-100); POTASSIUM SERUM 3.5 MEQ/L (3.5-5.1); SODIUM LEVEL 139 MEQ/L (136-145)
--- NOTE | 2020-05-18 13:38 | REP ---
INDICATION: Syncope. COMPARISON: None. TECHNIQUE: Helical scanning is acquired. 5 mm axial images were reformatted. Coronal MPR images were generated. FINDINGS: Bone window settings demonstrate an intact bony calvarium. There is no evidence of skull fracture or incidental bony calvarial lesion. The visualized paranasal sinuses appear clear. No intraorbital abnormality is seen. On soft tissue window setting images; the lateral, third, and fourth ventricles are normal in size and position. Rouse-white differentiation pattern is normal above and below the tentorium. There are is no evidence of intracranial hemorrhage. No mass, edema, infarction, or midline shift is seen. No extra-axial fluid collection is appreciated. There is a small area of right frontal scalp swelling consistent with a small hematoma. IMPRESSION: Small right frontal scalp hematoma. Otherwise negative CT study of the brain. No evidence of skull fracture or intracranial injury.. <Electronically signed by Patel Davis > 05/18/20 [id number]
--- NOTE | 2020-05-18 13:39 | REP ---
INDICATION: Syncope. COMPARISON: NONE. TECHNIQUE: Helical scanning is acquired and 2 mm axial images re-formatted. Coronal MPR images are generated and reviewed. FINDINGS: Digital preliminary behavioral therapist radiographs are unremarkable. The nasal bone and inferior maxillary spine are intact. There is a right supraorbital/frontal scalp hematoma which is small. Orbital margins are intact. No maxillary sinus or other paranasal sinus fracture is seen. No intraorbital hematoma is seen. Zygomatic arches are intact. No mandibular or maxillary fracture is seen. Study is otherwise unremarkable. IMPRESSION: Right supraorbital soft tissue swelling consistent with small scalp hematoma. No facial fracture seen. <Electronically signed by Patel Davis > 05/18/20 [id number]
[2020-05-18 14:57] VITALS: BP 122/69
--- NOTE | 2020-05-20 08:06 | ECGEPIP ---
[facility] - ED Test Date: 2020-05-18 Pat Name: DAMEON CARRILLO Department: Room: - Gender: Female [employer] Activation Manager: : [id number] Requested By: KAI Hair Order Number: [id number] Reading MD: Bree Avalos Measurements Intervals [place] Rate: 75 P: 30 ND: 142 QRS: 78 QRSD: 86 T: 39 QT: 400 QTc: 446 Interpretive Statements Normal sinus rhythm No prior Electronically Signed on 05-20-2020 8:06:28 EST by Bree Avalos
== END 2020-05-18 15:00 | disposition home or self-care (01) ==
LOC: M ED 11:36
DX: R55 Syncope and collapse (principal); M24.851 Other specific joint derangements of right hip, not elsewhere classified; S00.03XA Contusion of scalp, initial encounter; X58.XXXA Exposure to other specified factors, initial encounter; Y92.9 Unspecified place or not applicable; Y93.9 Activity, unspecified; Y99.9 Unspecified external cause status
CPT/HCPCS: 70450; 70486; 77002; 80048; 84443; 84703; 85025; 93005; 93041; 94760; 96360; 99285; J3301; Q9967

== ENCOUNTER → 2020-05-18 | Outpatient (CLI) | payer OTHER ==
[~2020-05-18] MED LIST: ISOVUE-300 61% 50ML VIAL As Ordered ONE; LIDOCAINE 1% MDV 20ML VIAL As Ordered ONE; LOPR1TAB6 PO; TRIAMCINOLONE ACETONIDE SUSP 40 MG/ML VIAL (J3301) As Ordered ONE
--- NOTE | 2020-05-18 15:06 | REP ---
INDICATION: RT HIP PAIN LABRUM TEAR. COMPARISON: None TECHNIQUE: The procedure was performed by CHERY Benavides, under the direct supervision of Dr. Davis. The benefits and risks of the procedure were explained to the patient, and an informed consent was obtained. Directly prior to the start of the procedure, a formal time-out was completed in the procedure room. The right femoral neck joint space was localized using fluoroscopic guidance. The skin was prepped and draped in a sterile fashion. Approximately 5 mL of 1% Lidocaine 10 mg/ml was used as a local anesthetic. Using fluoroscopic guidance, a #22 gauge spinal needle was inserted and advanced into the right femoral neck joint space. Approximately 1 mL of Isovue 300 was injected to verify placement. Ten mL of a solution containing 9 mL 1% lidocaine 10 mg/ml and 1 mL Kenalog 40 milligrams/milliliter was injected into the joint space. The needle was removed and hemostasis was achieved. FINDINGS: The patient tolerated the procedure well and there were no immediate complications. IMPRESSION: 1. Intra-articular right femoral neck pain injection under fluoroscopic guidance. 0.1 minutes of fluoroscopy time was utilized for this procedure. Some fluoroscopic images are performed with last image hold technology. These images require no additional radiation. <Electronically signed by Janel Green > 05/18/20 1501 <Electronically signed by Patel Davis > 05/18/20 1509
== END ==
LOC: M RADPRO 10:49
PROVIDERS: ATTEND Physician Assistant Surgical
DX: M24.851 Other specific joint derangements of right hip, not elsewhere classified (principal)

== ENCOUNTER → 2020-08-05 | Outpatient (CLI) | payer OTHER ==
[~2020-08-05] MED LIST changes: -LIDOCAINE 1% MDV 20ML VIAL As Ordered ONE; +PROHANCE 279.3MG/ML 5ML VIAL As Ordered ONE; -TRIAMCINOLONE ACETONIDE SUSP 40 MG/ML VIAL (J3301) As Ordered ONE
--- NOTE | 2020-08-05 09:20 | REP ---
INDICATION: RT HIP PAIN. COMPARISON: None TECHNIQUE: The procedure was performed by CHERY Benavides, under the direct supervision of Dr. Rouse. The benefits and risks of the procedure were explained to the patient, and an informed consent was obtained. Directly prior to the start of the procedure, a formal time-out was completed in the procedure room. The right femoral neck joint space was localized using fluoroscopic guidance. The skin was prepped and draped in a sterile fashion. Approximately 5 mL of 1% Lidocaine 10 mg/ml was used as a local anesthetic. Using fluoroscopic guidance, a #22 gauge spinal needle was inserted and advanced into the right femoral neck joint space. Approximately 1 mL of Isovue 300 was injected to verify placement. Twelve mL of a solution containing 20 mL of sterile saline and 0.15 mL of ProHance was injected into the joint space. The needle was removed and the patient was taken to MRI for post procedural imaging. FINDINGS: The patient tolerated the procedure well and there were no immediate complications. IMPRESSION: Fluoroscopic guided MRI arthrogram of the right hip. 0.1 minutes of fluoroscopy time was utilized for this procedure. Some fluoroscopic images are performed with last image hold technology. These images require no additional radiation. <Electronically signed by Janel Green > 08/05/20 0845 <Electronically signed by Winston Rouse > 08/05/20 [id number]
--- NOTE | 2020-08-05 10:30 | REP ---
INDICATION: RT HIP PAIN COMPARISON: None. TECHNIQUE: Coronal T1, STIR through the pelvis, axial, coronal, sagittal T2 fat sat, post arthrogram axial T1 fat sat, coronal T1 fat sat, sagittal T1 fat sat hip. FINDINGS: The visualized osseous structures demonstrate normal bone marrow signal. There is no bone marrow edema or occult fracture. There is no evidence of avascular necrosis. There does appear to be a tear of the anterior labrum. There is no paralabral cyst. There is normal amount of joint fluid. The surrounding soft tissue structures demonstrate no abnormal signal. The visualized intrapelvic structures are essentially unremarkable. The ovaries are normal. There is small amount of free fluid, likely physiologic in nature. IMPRESSION: Anterior labral tear. No other significant findings identified. <Electronically signed by Winston Rouse > 08/05/20 1022
== END ==
LOC: M RADPRO 06:38
PROVIDERS: ATTEND Nurse Practitioner
DX: S73.191A Other sprain of right hip, initial encounter (principal); X58.XXXA Exposure to other specified factors, initial encounter; Y92.89 Other specified places as the place of occurrence of the external cause; Y93.89 Activity, other specified; Y99.8 Other external cause status; M25.551 Pain in right hip
CPT/HCPCS: 27093; 73723; 77002; A9576; Q9967

== ENCOUNTER → 2021-07-10 | Outpatient (REF) ==
[~2021-07-10] MED LIST changes: +ACET1TAB55 PO; +ASPI1CHW3 PO; -ISOVUE-300 61% 50ML VIAL As Ordered ONE; -PROHANCE 279.3MG/ML 5ML VIAL As Ordered ONE
== END ==
LOC: M PLAIMG 13:37
PROVIDERS: ATTEND Internal Medicine
DX: R06.02 Shortness of breath (principal)

== ENCOUNTER → 2021-07-12 | Outpatient (REF) | payer OTHER | LOC: M CARPUL 09:29 → EDSTATUS 09:30 | PROVIDERS: ATTEND Internal Medicine | DX: R00.9 Unspecified abnormalities of heart beat (principal) ==